=== PATIENT | female | born 1970 | race Caucasian/White ===

== ENCOUNTER 2023-09-07 18:56 | Inpatient (IN) | payer MEDICAID, SELFPAY ==
[2023-09-07] VITALS (13 sets, daily range): BP systolic 98–180; BP diastolic 72–94; PULSE 90–116; RESP 14–19; TEMP 36.4–37.1; O2SAT 93–99; BMI 41.8
--- NOTE | 2023-09-07 | IR_ITS ---
APPROVED REPORT Patient Location: Emergent Appliance Sales Associate: MIGUEL Chen RT (R) PROCEDURES Placement of pericardial pigtail into the pericardial space followed by pericardiocentesis INDICATION Cardiac tamponade Informed consent was obtained prior to the procedure. COMPLICATIONS None TECHNIQUE Patient was brought to the Silver[facility] Buffing Machine Operator and sterilely prepped. 1% lidocaine was used anesthetize the subxiphoid area. A long needle was used to access the pericardial space and a wire was placed into the pericardial space followed by a dilator which dilated the tract. Following this the pigtail catheter was then inserted and 840 cc of blood-tinged fluid was removed. Patient tolerated the procedure well and had normalization of blood pressure following the procedure. The pigtail catheter was sewn into place and then sterilely draped. The bag was placed to gravity feed. IMPRESSION Successful pericardiocentesis with 840 cc of blood-tinged fluid removed alleviating the cardiac tamponade PLAN 1. Supportive care 2. Echocardiogram in the morning 3. [place] drain overnight Electronically signed by : Sebas Barakat MD 09/07/2023 20:35:53
--- NOTE | 2023-09-07 19:00 | PC.NURSE ---
boots and shoes supervisor notified patient is going to cath lab radiological technologist per H.Juan Manuel DAVIS
--- NOTE | 2023-09-07 19:00 | PC.NURSE ---
1899 DR BARR AT BEDSIDE TO PERFORM BS ULTRASOUND [address] BARR ON PHONE WITH DR ROSS, PT TO CATHLAB
--- NOTE | 2023-09-07 19:05 | PC.NURSE ---
PRODUCTION TEAM MEMBER NOTIFIED THAT PT IS GOING TO CATHLAB PER DR ROSS AND DR BARR
--- NOTE | 2023-09-07 19:37 | PC.NURSE ---
roofing laborer called and pt is being trasnported via EMS stretcher and monitor to labeling associate with ems, dye house hand, and ER medic.
--- NOTE | 2023-09-07 19:40 | ED_ITS ---
Discharge Plan Disposition Chief Complaint: Chest Pain Clinical Impressions Clinical Impression: Acute pericardial effusion, Tachycardia Discharge ED Provider: Dagoberto Son General Adult HPI General Chief complaint: Chest Pain Stated complaint: chest pain Time Seen by Provider: 09/07/23 19:00 Mode of Arrival: Ambulatory Source of Information: Patient Limitations: No Limitations Description of Symptoms (Recalled from ER Triage Doc. by RN): pt came from [facility] and is going to fish farm laborer for chest pain /soa. pt has a known pericardial effusion, ER MD at bedside with ultrasound machine. ER MD on the phone with History of Present Illness HPI narrative: Patient is a 53-year-old female who is transferred from [facility] for evaluation of pericardial effusion with suspected tamponade. Patient was reportedly evaluated outside hospital where CT imaging was concerning for tamponade, patient was tachycardic to the 130s and received multiple liters of crystalloid with partial resolution of tachycardia. I was contacted by Dr. Karma al to evaluate the patient to determine if expedited management in the Corrections Caseworker is warranted or if patient will be able to have it done on an urgent basis within the next 24 to 48 hours. Upon arrival patient is complaining of persistent shortness of breath and generally feeling unwell, 4 L nasal cannula is in place, no other acute complaints at this time. Related Data Allergies Allergy/AdvReac Type Severity Reaction Status Date / Time Sulfa (Sulfonamide Allergy Verified 09/07/23 19:20 Antibiotics) [facility] Disclaimer: The information contained in this section may have been updated after the patient was seen, as this information can be updated by other users. Medical History (Updated 09/07/23 @ 19:44 by Dagoberto Son MD) COPD (chronic obstructive pulmonary disease) Surgical History (Updated 09/07/23 @ 19:21 by Reid Mcnamara RN) History of hysterectomy Social History Smoking Status: Current every day smoker alcohol intake: never current occupational status: other Travel in the last 8 weeks: None ROS Obtained: Yes Systems reviewed as appropriate & no additional complaints except as documented Physical Exam General General appearance: alert Respiratory Respiratory exam: Present normal lung sounds bilaterally Cardiovascular Cardiovascular exam: Present regular rate and tachycardia Neurological Exam Neurological exam: Present alert Medical Decision Making Eliseo Inquiry Pt receiving controlled substance: No Vital Signs: 09/07/23 18:56 09/07/23 19:17 Temperature 97.6 F Temperature Source Oral Pulse Rate 116 H Pulse Rate [Right Radial] 116 H Respiratory Rate 15 Blood Pressure [Right Arm] 98/80 L Blood Pressure Mean [Right Arm] 86 02 Sat by Pulse Oximetry 97 Oxygen Delivery Method Room Air Orders (Tests/Meds): ED MEDICATIONS Generic Name Dose Route Start Last Admin Trade Name Freq PRN Reason Stop Dose Admin Fentanyl Citrate 50 mcg 09/07/23 19:26 Fentanyl 100mcg/2ml Vial IV 09/08/23 07:26 Q3MINP PRN Moderate to Severe Pain (4-10) Fentanyl Citrate 25 mcg 09/07/23 19:26 Fentanyl 250mcg/5ml Vial IV 09/08/23 07:26 Q3MINP PRN Moderate to Severe Pain (4-10) Fentanyl Citrate 50 mcg 09/07/23 19:26 Fentanyl 250mcg/5ml Vial IV 09/08/23 07:26 Q3MINP PRN Moderate to Severe Pain (4-10) Fentanyl Citrate 25 mcg 09/07/23 19:26 Fentanyl 100mcg/2ml Vial IV 09/08/23 07:26 Q3MINP PRN Moderate to Severe Pain (4-10) Flumazenil 0.2 mg 09/07/23 19:26 Flumazenil 0.1mg/Ml 5ml Vial IV 09/08/23 07:26 NEEDED PRN Sedation Heparin Sodium (Porcine) 10,000 unit 09/07/23 19:26 Heparin 1,000 Units/Ml 10ml Vial (Corrections Caseworker) IV 09/07/23 23:26 NEEDED PRN [employer] Hydralazine HCl 20 mg 09/07/23 19:26 Hydralazine 20mg/Ml Vial IV 09/07/23 23:26 ONCE PRN sbp>160 Adenosine 180 mg/ Sodium 90 mls @ 653.4 mls/hr 09/07/23 19:26 Chloride IV 09/07/23 23:26 ONCE PRN fractional flow reserve 180 MCG/KG/MIN Adenosine 90 mg/ Sodium 90 mls @ 1,306.8 mls/hr 09/07/23 19:26 Chloride IV 09/07/23 23:26 ONCE PRN fractional flow reserve 180 MCG/KG/MIN Sodium Chloride 1,000 mls @ 25 mls/hr 09/07/23 19:30 Sod Chloride 0.9% 500ml Bag IV 09/08/23 19:26 .Q25H VARSHA Labetalol HCl 20 mg 09/07/23 19:26 Labetalol 20mg/4ml Syringe IV 09/07/23 23:26 ONCE PRN sbp>160 Midazolam HCl 1 mg 09/07/23 19:26 Midazolam Hcl 1mg/1ml 5ml Vial IV 09/08/23 07:26 Q3MINP PRN Sedation Midazolam HCl 1 mg 09/07/23 19:26 Midazolam 2mg/2ml Vial IV 09/08/23 07:26 Q3MINP PRN Sedation Naloxone HCl 0.4 mg 09/07/23 19:26 Naloxone 0.4mg/Ml Vial IV 09/08/23 07:26 Q5MINP PRN Decreased Respirations Nitroglycerin 800 mcg 09/07/23 19:26 Nitroglycerin 800mcg/8ml Syr (Corrections Caseworker) IA 09/07/23 23:26 NEEDED PRN [employer] Protamine Sulfate 50 mg 09/07/23 19:26 Protamine Sulfate 50mg/5ml Vial ([facility]rections Caseworker) IV 09/07/23 23:26 ONCE PRN act>200 Discontinued Medications Generic Name Dose Route Start Last Admin Trade Name Freq PRN Reason Stop Dose Admin Diphenhydramine HCl 50 mg 09/07/23 19:26 Diphenhydramine 50mg/Ml Vial IV 09/07/23 19:27 ONCE ONE Heparin Sodium/Sodium Chloride 3,000 unit 09/07/23 19:26 Heparin 1,000 Units/500ml Ns ([facility]rections Caseworker) IV 09/07/23 19:27 ONCE ONE Lidocaine HCl 20 ml 09/07/23 19:26 Lidocaine 1% 10ml Mdv IJ 09/07/23 19:27 ONCE ONE Lidocaine HCl 20 ml 09/07/23 19:26 Lidocaine 1% 5ml Pf Vial IJ 09/07/23 19:27 ONCE ONE Verapamil HCl 2.5 mg 09/07/23 19:26 Verapamil 2.5mg/Ml 2ml Vial IV 09/07/23 19:27 ONCE ONE ORDERS Category Date Time Status Basic Metabolic Panel Stat Lab 09/07/23 19:26 Ordered Complete Blood Count Auto Diff Stat Lab 09/07/23 19:26 Ordered Medical Decision Narrative: In summary patient is a 53-year-old female past medical history described above who presents emergency department as a transfer patient to outside hospital for evaluation of pericardial effusion with possible tamponade. Patient is hemod ynamically stable upon arrival, tachycardic. Patient's systolic blood pressure is downtrending, she has persistent tachycardia despite 3 L crystalloid resuscitation. [id number] ultrasound at bedside does not show full diastolic collapse of the right ventricle however there is a large pericardial effusion present with swinging of the pericardium. Given this I suspect patient is pending tamponade and has responded to fluid challenge increasing her effective circulating volume therefore decreasing her tachycardia as it is able to oppose the effusion. The case was discussed with Dr. Barakat who agrees that patient will benefit from emergent pericardial drain at this time and patient was transported to the Corrections Caseworker for definitive management. Critical Care Critical Care Time Critical Care Time: Yes Attestation: On 09/07/23, the high probability of a clinically significant, sudden or life threatening deterioration of the following system(s) required my full and direct attention, intervention and personal management. The time I documented below is in addition to time spent performing reported procedures but includes the following listed in this critical care notation. Total Time Total Critical Care Time: 0
[2023-09-07] MEDS: LIDOCAINE 1% 10ML MDV 20 ML IJ (19:42)
[2023-09-07] MEDS: HEPARIN 1,000 UNITS/500ML NS (CATH LAB) 3000 UNIT IV (19:42)
[2023-09-07] MEDS: 0.9 % SODIUM CHLORIDE 500 ML 25 ML IV (19:42)
[2023-09-07] MEDS: MIDAZOLAM HCL 1MG/1ML 5ML VIAL 1 MG IV (20:02)
[2023-09-07] MEDS: FENTANYL 100MCG/2ML VIAL 50 MCG IV (20:03)
--- NOTE | 2023-09-07 20:50 | PC.NURSE ---
Patient arrived to floor via stretcher from blood bank laboratory professional at 2036
--- NOTE | 2023-09-07 20:51 | XR_ITS ---
PROCEDURE INFORMATION: Exam: XR Chest Exam date and time: 09/07/2023 9:11 PM Age: 53 years old Clinical indication: Device placement; Other: Cardiac drain placement TECHNIQUE: Imaging protocol: Radiologic exam of the chest. Views: 1 view. COMPARISON: XA CL PERICARDIOCENTESIS INITIAL 09/07/2023 12:00 AM FINDINGS: Tubes, catheters and devices: Defibrillator pads and telemetry wires project over the patient. No drain catheter is visualized. Lungs: Low lung volumes with consolidative retrocardiac opacity. Pleural spaces: No large pleural effusion. No pneumothorax. Heart/Mediastinum: Cardiomediastinal silouhette is within normal limits. Bones/joints: No evidence of acute osseous abnormality. IMPRESSION: 1. No drain catheter is visualized. 2. Low lung volumes with consolidative retrocardiac opacity.
--- NOTE | 2023-09-07 21:03 | EXP.HP ---
History of Present Illness *Admission Date: 09/07/23 *Reason for visit:: chest pain *History of present illness: This is a 53-year-old morbidly obese female who is transferred from [facility] for evaluation of pericardial effusion with suspected tamponade. Patient PMHx included but not limited to COPD and former smoker. Unknown any previous cardiac history. Patient was reportedly evaluated outside hospital where CT imaging was concerning for tamponade, patient was tachycardic to the 130s and received multiple liters of crystalloid with partial resolution of tachycardia. Upon arrival patient is complaining of persistent shortness of breath and generally feeling unwell, 4 L nasal cannula is in place, no other acute complaints at this time. Patient was emergently taken into [facility] labs. Admitted post procedure for further management. [facility] Disclaimer: The information contained in this section may have been updated after the patient was seen, as this information can be updated by other users. Medical History (Updated 09/08/23 @ 03:09 by Danish Sharma APRN) Anxiety Chronic pain COPD (chronic obstructive pulmonary disease) Depression HTN (hypertension) Neuropathy Surgical History (Updated 09/08/23 @ 03:08 by Danish Sharma APRN) History of hysterectomy Family History (Updated 09/07/23 @ 21:06 by Damian Jean RN) Other No significant family history Social History (Updated 09/07/23 @ 21:07 by Damian Jean RN) Smoking Status: Current every day smoker alcohol intake: never current occupational status: disabled and other Travel in the last 8 weeks: None Review of Systems Review of Systems Review of systems:: unable to obtain Meds Home Medications and Allergies Home Medications Medication Instructions Recorded Confirmed Type buprenorphine 8 mg-naloxone 2 mg 2 tab sublingual DAILY 09/07/23 09/07/23 History sublingual tablet buspirone 15 mg tablet 15 mg PO TID Anxiety 09/07/23 09/07/23 History gabapentin 800 mg tablet 800 mg PO TID Pain 09/07/23 09/07/23 History quetiapine 300 mg tablet 300 mg PO HS Mood 09/07/23 09/07/23 History venlafaxine 75 mg capsule,extended 75 mg PO DAILY Mood 09/07/23 09/07/23 History release 24 hr doxycycline hyclate 100 mg capsule 100 mg PO BID Infection 09/08/23 09/08/23 History ipratropium 20 mcg-albuterol 100 1 puff inhalation Q4HP PRN 09/08/23 09/08/23 History mcg/actuation mist for inhalation Shortness Of Breath (Combivent Respimat) levothyroxine 150 mcg tablet 150 mcg PO DAILY Thyroid 09/08/23 09/08/23 History nicotine 21 mg/24 hr daily 21 mg transdermal DAILY Smoking 09/08/23 09/08/23 History transdermal patch Cessation New Prescriptions to Start Prescriptions: Allergies Allergy/AdvReac Type Severity Reaction Status Date / Time Sulfa (Sulfonamide Allergy Verified 09/07/23 19:20 Antibiotics) Exam Data for Last 24 hours Vital signs and Labs for Last 24 Hours: Temp Pulse Resp BP Pulse Ox O2 Del Method O2 Flow Rate 98.0 F 112 H 14 116/94 H 97 Nasal Cannula 4 09/07/23 19:41 09/07/23 19:41 09/07/23 19:41 09/07/23 19:41 09/07/23 18:56 09/07/23 19:41 09/07/23 19:41 I & O for Last 24 hours: Intake & Output 09/04/23 09/05/23 09/06/23 09/07/23 23:59 23:59 23:59 23:59 Weight 121 kg Constitutional Constitutional: morbidly obese and somnolent *Routine HEENT Exam Head: Present normocephalic and atraumatic Eye: Present EOMI, PERRL and normal accommodation ENT: Present mucous membranes moist *Routine Neck Exam Neck: Present supple, full ROM and trachea midline Routine Chest/Breast/Axilla Exam Comments: percutaneous pericardial drainage to gravity *Routine Respiratory Exam Respiratory: Present wheezes, normal respiratory effort, able to speak in complete sentences and symmetric chest movement; Absent respiratory distress *Routine Cardiovascular Exam Cardiovascular: Present RRR, Normal S1 and Normal S2 *Routine Abdominal Exam Abdominal: Present soft, normoactive bowel sounds and obese; Absent organomegaly *Routine Rectal Exam Rectal:: deferred *Routine Genitalia Exam Genitalia:: deferred *Routine Extremities Exam Extremities: Present full ROM, pulses intact and normal capillary refill; Absent cyanosis, clubbing or edema *Routine Skin Exam Skin: Present dry and warm *Routine Neurological Exam Neurological: Present alert, normal reflexes and moving all extremities Routine Psychiatric Exam Psychiatric: Present unable to assess H&P: Result Imaging and Cardiology EKG: Status: image reviewed by me and Preliminary report Chest x-ray: Status: image reviewed by me, Preliminary report and final report Assessment and Plan *Assessment and plan (1) Pericardial effusion with cardiac tamponade: Status: Acute Category: Medical Code(s): I31.39 - Other pericardial effusion (noninflammatory); I31.4 - Cardiac tamponade (2) Status post pericardiocentesis: Status: Acute Category: Surgical Code(s): Z98.890 - Other specified postprocedural states (3) Tachycardia: Status: Acute Category: Medical Code(s): R00.0 - Tachycardia, unspecified (4) COPD (chronic obstructive pulmonary disease): Status: Acute Qualifiers: COPD type: unspecified COPD Qualified Code(s): J44.9 - Chronic obstructive pulmonary disease, unspecified Category: Medical Code(s): J44.9 - Chronic obstructive pulmonary disease, unspecified (5) HTN (hypertension): Status: Acute Qualifiers: Hypertension type: unspecified Qualified Code(s): I10 - Essential (primary) hypertension Category: Medical Code(s): I10 - Essential (primary) hypertension (6) Morbid obesity with BMI of 40.0-44.9, adult: Status: Acute Category: Medical Code(s): E66.01 - Morbid (severe) obesity due to excess calories; Z68.41 - Body mass index [BMI] 40.0-44.9, adult Plan 53-year-old morbidly obese female who is transferred from [facility] for evaluation of pericardial effusion with suspected tamponade. Upon arrival patient is complaining of persistent shortness of breath and generally feeling unwell, 4 L nasal cannula is in place, no other acute complaints at this time. CT from outside facility was concerning for cardiac tamponade due to large pericardial effusion. Bedside emergency US confirmed the effusion on arrival. Patient was emergently taken for percutaneous pericardial drainage. Patient seen and evaluated post procedure. 850 serosanguineous fluid was drained. drainage on gravity. Findings was discussed with ER provider pre-procedure and and cardiology post- procedure. Agreed with admission. Plan as follow: -Pericardial effusion with cardiac tamponade s/p percutaneous pericardiocentesis: Admit patient for continuous cardiac telemetry. Dispo step down caradiology on board. follow their recommendation. Drainage to gravity assess for amount of fluid collected. monitor for HR, BP and tamponade signs (wide pulse, low voltage) obtaine CBC.CMP lactic acid and PT/INR STAT CXR stat. started on cefepime 2g TID IV post-procedure. monitor for sepsis pain management. - Tachycardia. Resolved. -COPD: Does not seem to be on exacerbation . Currently on 2L monitor O2 sat,. maximize sat, Duoneb q 6h -Hx of HTN. not on any current medication. continue monitoring cardiac diet - Morbidly obese: educated on weight loss. and life style changes. PCP to follow up BMI. patient was heparinized preprocedure. SCD for DVT ppx. will deferred further anticoagulation if need to cardiology team. Protonix for DVT ppx. Case discussed with daugther bedside post- procedure. They agrees with the plan Full code Attending attestation Patient was seen and evaluated at the bedside myself, agree with DREA note.
[2023-09-07 21:05] LABS: Basophils % 0.1 % (0.1-2.0); Eosinophils # 0.2 K/mm3 (0.0-0.4); Eosinophils % 0.9 % (0.1-12.0); Hematocrit 31.7 % (37.0-47.0); Hemoglobin 10.4 g/dL (12.2-16.2); Lymphocytes # 0.6 K/mm3 (0.7-4.5); Lymphocytes % 3.1 % (10-50); Mean Corpuscular HGB Conc 32.7 g/dL (31.8-35.4); Mean Corpuscular Hemoglobin 28.4 pg (27.0-31.2); Mean Corpuscular Volume 87.1 fl (81-99); Mean Platelet Volume 7.8 fl (7.4-10.4); Monocytes # 0.7 K/mm3 (0.1-1.0); Monocytes % 3.9 % (1.7-9.3); Neutrophils % 91.9 % (37.0-80.0); Platelet Count 299 K/mm3 (142-424); Red Blood Count 3.65 M/mm3 (4.20-5.40); Red Cell Distribution Width 13.6 % (11.5-17.5); White Blood Count 18.5 K/mm3 (4.8-10.8)
[2023-09-07 21:08] LABS: MANUAL DIFFERENTIAL MANUAL DIFFERENTIAL (MANUAL DIFF)
--- NOTE | 2023-09-07 21:12 | PC.NURSE ---
pt arrived to the floor @20:46
[2023-09-07 21:17] LABS: Lymphocytes % 3 % (10-50); Monocytes % 6 % (2-9); Neutrophils % 91 % (42-76); Platelet Estimate Normal; RBC Morphology Normal; Total Cells Counted 100
[2023-09-07 21:26] LABS: Anion Gap 12.6 mEq/L (5-15); Blood Urea Nitrogen 12 mg/dl (7-17); Calcium 7.6 mg/dl (8.4-10.2); Carbon Dioxide 25 mmol/L (22.0-30.0); Chloride 101 mmol/L (98-107); Creatinine Clearance Estimated 62 mL/min (50-200); Estimated Glomerular Filt Rate 58 ml/min (>60); GFR (African American) 70 ML/MIN (>60); Glucose 150 mg/dl (74-100); Potassium 4.6 mmoL/L (3.5-5.1); Sodium 134 mmol/L (136-145)
[2023-09-07 21:32] LABS: INR 1.66 (0.9-1.1); Prothrombin Time 17.3 seconds (10.1-12.5)
[2023-09-07] MEDS: CEFEPIME HCL 2 GM in 0.9 % SODIUM CHLORIDE 100 ML IV (21:58)
[2023-09-07] MEDS: PANTOPRAZOLE 40MG TABLET 40 MG PO (22:12)
--- NOTE | 2023-09-07 22:36 | PC.NURSE ---
Cath team notified at 1902 Shira call back: 1904 Chaitanya call back: 1903 Hannah call back: 1904
[2023-09-07] MEDS: IPRATROPIUM/ALBUTEROL 3 ML NEB IH (23:39)
[2023-09-08] VITALS (12 sets, daily range): BP systolic 112–130; BP diastolic 45–79; PULSE 84–108; RESP 17–21; TEMP 36.6–37.1; O2SAT 90–98; BMI 43.9
[2023-09-08] MEDS: CEFEPIME HCL 2 GM in 0.9 % SODIUM CHLORIDE 100 ML IV ×3 (04:18→19:41)
--- NOTE | 2023-09-08 04:51 | PC.NURSE ---
Patient placed on room air, sats 90-92%
--- NOTE | 2023-09-08 04:51 | PC.NURSE ---
Patient had uneventful night. Pericardial drain in place, no drainage emptied by RN overnight. A&O x 4. SR/ST on monitor. Weaned to RA, sats around 90% while sleeping (pt hx of COPD). No complaints of pain. Delaney in place, good UOP. No BM. VSS.
[2023-09-08] MEDS: IPRATROPIUM/ALBUTEROL 3 ML NEB IH ×3 (06:30→17:52)
--- NOTE | 2023-09-08 07:26 | HMH.PHAINT1 ---
Pharmacy Intervention Comments: MEDICATION RECONCILIATION COMPLETED ON PATIENT USING EXTERNAL FILL HISTORY FROM PHARMACY AND ASHLEY REPORT. -SRINIVASAN RAYGOAZ, AYALAD
[2023-09-08 07:39] LABS: Alanine Aminotransferase 39 U/L (12-78); Albumin Level 2.8 g/dl (3.5-5.0); Albumin/Globulin Ratio 0.9 (1.1-1.8); Alkaline Phosphatase 105 U/L (38-126); Anion Gap 7.1 mEq/L (5-15); Aspartate Amino Transferase 40 U/L (14-36); Bilirubin,Total 0.7 mg/dl (0.2-1.3); Blood Urea Nitrogen 11 mg/dl (7-17); Calcium 7.8 mg/dl (8.4-10.2); Carbon Dioxide 29 mmol/L (22.0-30.0); Chloride 104 mmol/L (98-107); Chol/HDL Ratio 2.8 (1-3.5); Cholesterol 62 mg/dl (140-200); Creatinine Clearance Estimated 85 mL/min (50-200); Estimated Glomerular Filt Rate 87 ml/min (>60); GFR (African American) 105 ML/MIN (>60); Globulin 3.1 g/dL (1.3-3.2); Glucose 95 mg/dl (74-100); HDL Cholesterol 22 mg/dl (40-60); Potassium 4.1 mmoL/L (3.5-5.1); Sodium 136 mmol/L (136-145); Total Protein,Serum 5.9 g/dl (6.3-8.2); Triglycerides 37 mg/dl (30-150); VLDL Cholesterol 7 mg/dL (0-40)
[2023-09-08 07:42] LABS: Basophils % 0.2 % (0.1-2.0); Eosinophils % 0.3 % (0.1-12.0); Hematocrit 29.2 % (37.0-47.0); Hemoglobin 9.9 g/dL (12.2-16.2); Lymphocytes # 0.9 K/mm3 (0.7-4.5); Lymphocytes % 6.8 % (10-50); Mean Corpuscular Hemoglobin 30.1 pg (27.0-31.2); Mean Corpuscular Volume 88.5 fl (81-99); Mean Platelet Volume 7.8 fl (7.4-10.4); Monocytes # 0.8 K/mm3 (0.1-1.0); Monocytes % 5.7 % (1.7-9.3); Neutrophils # 11.6 K/mm3 (1.8-7.8); Platelet Count 243 K/mm3 (142-424); Red Cell Distribution Width 13.4 % (11.5-17.5); White Blood Count 13.3 K/mm3 (4.8-10.8)
[2023-09-08 07:47] LABS: MANUAL DIFFERENTIAL MANUAL DIFFERENTIAL (MANUAL DIFF)
[2023-09-08 07:50] LABS: Direct LDL Cholesterol 34.97 mg/dL (100-129)
[2023-09-08 08:40] LABS: Lymphocytes % 7 % (10-50); Monocytes % 3 % (2-9); Neutrophils % 90 % (42-76); Platelet Estimate Normal; RBC Morphology Normal; Total Cells Counted 100
--- NOTE | 2023-09-08 09:09 | PC.NURSE ---
per order from [facility] hospitalist, pt was to be admitted as a stepdown pt, admissions states that pt was admitted to medicine, not stepdown, Dr. Bowser confirmed that pt does not need to be stepdown
[2023-09-08] MEDS: BUPRENORPHINE/NALOXONE 8MG/2MG ODT 2 EACH SL (10:36)
--- NOTE | 2023-09-08 10:42 | EXP.CARD.CON ---
History of Present Illness History of Present Illness Consult date: 09/08/23 Requesting physician: Genesis Bowser Consult reason: shortness of breath Chief complaint: Pericardial effusion History of present illness: Hospitalist note: 53-year-old morbidly obese female who is transferred from [facility] for evaluation of pericardial effusion with suspected tamponade. Patient PMHx included but not limited to COPD and former smoker. Patient was reportedly evaluated outside hospital where CT imaging was concerning for tamponade, patient was tachycardic to the 130s and received multiple liters of crystalloid with partial resolution of tachycardia. Upon arrival patient is complaining of persistent shortness of breath and generally feeling unwell, 4 L nasal cannula is in place, no other acute complaints at this time. Patient was emergently taken into [facility] labs. Admitted post procedure for further management. Cardiology note: 53-year-old white female with past medical history of morbid obesity, COPD and hypertension presented [facility] ER yesterday as a transfer from [facility] for pericardial effusion with tamponade. Patient was taken immediately to [facility] for drainage of pericardial effusion and a pericardial drain was left in place. Patient is resting comfortably this morning denies chest pain or shortness of breath. Patient reports that last week she was admitted to [facility] with a diagnosis of pneumonia, COPD exacerbation and pleurisy. Patient reports she never really felt better and was discharged home. Patient reports progressive and worsening shortness of breath and chest pain prompting her to return to the emergency department yesterday. Patient also endorses that recently she was at [facility] and underwent a heart catheterization and was told everything is fine. Of note patient is a poor historian. 800 mL was emptied from drain this morning, specimen was sent to lab for cytology. Morning labs as follow: Hemoglobin 13.3, hemoglobin 9.9, sodium 136, potassium 4.1, creatinine 0.7. Cardiogram is pending. Vital's remain stable. CTA of chest was performed at [facility] yesterday and was negative for a PE or dissection but did show a significant interval increase in size of pericardial effusion and small bilateral pleural effusions. [facility] Disclaimer: The information contained in this section may have been updated after the patient was seen, as this information can be updated by other users. Medical History (Updated 09/08/23 @ 03:09 by Danish Sharma APRN) Anxiety Chronic pain COPD (chronic obstructive pulmonary disease) Depression HTN (hypertension) Neuropathy Surgical History (Updated 09/08/23 @ 03:08 by Danish Sharma APRN) History of hysterectomy Family History (Updated 09/07/23 @ 21:06 by Damian Jean, RN) Other No significant family history Social History (Updated 09/07/23 @ 21:07 by Damian Jean, RN) Smoking Status: Current every day smoker alcohol intake: never current occupational status: disabled and other Travel in the last 8 weeks: None Review of Systems Review of Systems Review of systems:: pertinent systems reviewed and negative unless documented below Constitutional Constitutional: Reports system reviewed and no additional complaints, except as documented *Cardiovascular Cardiovascular: Reports system reviewed and no additional complaints, except as documented *Respiratory Respiratory: Reports system reviewed and no additional complaints, except as documented *Gastrointestinal Gastrointestinal: Reports system reviewed and no additional complaints, except as documented *Neurologic Neurologic: Reports system reviewed and no additional complaints, except as documented and Denies confusion Psychiatric Psychiatric: Reports system reviewed and no additional complaints, except as documented and Denies confusion Exam Data for Last 24 hours Vital signs and Labs for Last 24 Hours: Temp Pulse Resp BP Pulse Ox O2 Del Method O2 Flow Rate 97.9 F 99 H 20 117/71 95 Room Air 93 09/08/23 08:00 09/08/23 08:00 09/08/23 08:00 09/08/23 08:00 09/08/23 08:00 09/08/23 09:00 09/08/23 09:00 Laboratory Results - last 24 hr 09/07/23 21:00: WBC 18.5 H, RBC 3.65 L, Hgb 10.4 L, Hct 31.7 L, MCV 87.1, MCH 28.4, MCHC 32.7, RDW 13.6, Plt Count 299, MPV 7.8, Neut % (Auto) 91.9 H, Lymph % (Auto) 3.1 L, [place] % (Auto) 3.9, Eos % (Auto) 0.9, Baso % (Auto) 0.1, Neut # (Auto) 17.0 H, Lymph # (Auto) 0.6 L, [place] # (Auto) 0.7, Eos # (Auto) 0.2, Baso # (Auto) 0.0, Total Counted 100, Neutrophils % (Manual) 91 H, Lymphocytes % (Manual) 3 L, Monocytes % (Manual) 6, Platelet Estimate Normal, RBC Morphology Normal, PT 17.3 H, INR 1.66 H, Sodium 134 L, Potassium 4.6, Chloride 101, Carbon Dioxide 25, Anion Gap 12.6, BUN 12, Creatinine 1.00, Estimated Creat Clear 62, Estimated GFR 58 L, Est GFR ( Amer) 70, Glucose 150 H, Lactate 1.0, Calcium 7.6 L 09/08/23 06:40: WBC 13.3 H D, RBC 3.30 L, Hgb 9.9 L, Hct 29.2 L, MCV 88.5, MCH 30.1, MCHC 34.0, RDW 13.4, Plt Count 243, MPV 7.8, Neut % (Auto) 87.0 H, Lymph % (Auto) 6.8 L, [place] % (Auto) 5.7, Eos % (Auto) 0.3, Baso % (Auto) 0.2, Neut # (Auto) 11.6 H, Lymph # (Auto) 0.9, [place] # (Auto) 0.8, Eos # (Auto) 0.0, Baso # (Auto) 0.0, Total Counted 100, Neutrophils % (Manual) 90 H, Lymphocytes % (Manual) 7 L, Monocytes % (Manual) 3, Platelet Estimate Normal, RBC Morphology Normal, Sodium 136, Potassium 4.1, Chloride 104, Carbon Dioxide 29, Anion Gap 7.1, BUN 11, Creatinine 0.70 D, Estimated Creat Clear 85, Estimated GFR 87, Est GFR ( Amer) 105 D, Glucose 95 D, Calcium 7.8 L, Magnesium 2.0, Total Bilirubin 0.7, AST 40 H, ALT 39, Alkaline Phosphatase 105, Total Protein 5.9 L, Albumin 2.8 L, Globulin 3.1, Albumin/Globulin Ratio 0.9 L, Triglycerides 37, Cholesterol 62 L, LDL Cholesterol Direct 34.97 L, VLDL Cholesterol 7, HDL Cholesterol 22 L, Cholesterol/HDL Ratio 2.8 I & O for Last 24 hours: Intake & Output 09/05/23 09/06/23 09/07/23 09/08/23 23:59 23:59 23:59 23:59 Intake Total 100 / 100 Output Total 400 / 400 1325 / 1325 Balance -300 / -300 -1325 / -1325 Weight 266 lb 12.149 oz 280 lb 3.32 oz Constitutional Constitutional: no acute distress *Routine Respiratory Exam Respiratory: Present CTA bilaterally and symmetric chest movement *Routine Cardiovascular Exam Cardiovascular: Present RRR, Normal S1 and Normal S2 Comments: Pericardial drain in place *Routine Abdominal Exam Abdominal: Present soft and normoactive bowel sounds; Absent tenderness *Routine Extremities Exam Extremities: Present full ROM and normal capillary refill; Absent edema *Routine Skin Exam Skin: Present intact, dry and warm Detailed Neck Exam: Thyroids Thyroid: Absent bruit Meds Home Medications and Allergies Home Medications Medication Instructions Recorded Confirmed Type buprenorphine 8 mg-naloxone 2 mg 2 tab sublingual DAILY 09/07/23 09/07/23 History sublingual tablet buspirone 15 mg tablet 15 mg PO TID Anxiety 09/07/23 09/07/23 History gabapentin 800 mg tablet 800 mg PO TID Pain 09/07/23 09/07/23 History quetiapine 300 mg tablet 300 mg PO HS Mood 09/07/23 09/07/23 History venlafaxine 75 mg capsule,extended 75 mg PO DAILY Mood 09/07/23 09/07/23 History release 24 hr doxycycline hyclate 100 mg capsule 100 mg PO BID Infection 09/08/23 09/08/23 History ipratropium 20 mcg-albuterol 100 1 puff inhalation Q4HP PRN 09/08/23 09/08/23 History mcg/actuation mist for inhalation Shortness Of Breath (Combivent Respimat) levothyroxine 150 mcg tablet 150 mcg PO DAILY Thyroid 09/08/23 09/08/23 History nicotine 21 mg/24 hr daily 21 mg transdermal DAILY Smoking 09/08/23 09/08/23 History transdermal patch Cessation New Prescriptions to Start Prescriptions: Allergies Allergy/AdvReac Type Severity Reaction Status Date / Time Sulfa (Sulfonamide Allergy Verified 09/07/23 19:20 Antibiotics) Assessment and Plan *Assessment and plan (1) Pericardial effusion with cardiac tamponade: Status: Acute Category: Medical Code(s): I31.39 - Other pericardial effusion (noninflammatory); I31.4 - Cardiac tamponade (2) Acute pericardial effusion: Status: Acute Category: Medical Code(s): I30.9 - Acute pericarditis, unspecified Plan Pericardial effusion with cardiac tamponade -Patient is status post pericardiocentesis yesterday with pericardial drain in place. -800 mL of blood emptied from drain this morning, specimen sent to lab for cytology -Preliminary echocardiogram from this morning shows normal biventricular function with a small circumferential pericardial effusion with no evidence of tamponade. -CTA of chest was performed at [facility] yesterday and was negative for PE or dissection. -Will obtain medical records from [facility] in [place] where patient was recently hospitalized and reportedly had a heart cath. -AYLIN and TSH pending -Gram stain and culture pending -Will repeat echocardiogram Monday morning for recheck of pericardial effusion. CV summary 09/08/2023: Patient is currently stable with pericardial drain in place. 800 mL was emptied this morning and specimen was sent for cytology. Will leave drain in place until output decreases.
[2023-09-08] MEDS: VENLAFAXINE XR 75MG CAPSULE 75 MG PO (11:01)
[2023-09-08] MEDS: LEVOTHYROXINE 150MCG (0.15MG)TAB 150 MCG PO (11:01)
[2023-09-08] MEDS: NICOTINE 21MG/24HR PATCH 21 MG TD (11:02)
[2023-09-08 12:01] LABS: Free T4 (Free Thyroxine) 1.38 ng/dl (0.78-2.19)
[2023-09-08 12:15] LABS: Thyroid Stimulating Hormone 0.79 uIU/mL (0.465-4.68)
[2023-09-08] MEDS: BUSPIRONE HCL 10 MG TABLET 15 MG PO ×2 (12:31→20:13)
[2023-09-08] MEDS: GABAPENTIN 800MG TABLET 800 MG PO ×2 (12:32→20:13)
--- NOTE | 2023-09-08 14:29 | P.PN_ITS ---
Subjective *Date: 09/08/23 *Time: 14:29 Interval history: patient was seen and evaluated at the bedside. No reported acute events overnight, denies chest pain, shortness of breath, nausea, vomiting, abdominal pain. Had pericardial drain, draining good amount of fluid Exam Data for Last 24 hours Vital signs and Labs for Last 24 Hours: Temp Pulse Resp BP Pulse Ox O2 Del Method O2 Flow Rate 98.4 F 108 H 21 130/65 90 L Room Air 93 09/08/23 12:00 09/08/23 12:00 09/08/23 12:00 09/08/23 12:00 09/08/23 12:00 09/08/23 13:00 09/08/23 09:00 Laboratory Results - last 24 hr 09/07/23 21:00: WBC 18.5 H, RBC 3.65 L, Hgb 10.4 L, Hct 31.7 L, MCV 87.1, MCH 28.4, MCHC 32.7, RDW 13.6, Plt Count 299, MPV 7.8, Neut % (Auto) 91.9 H, Lymph % (Auto) 3.1 L, [place] % (Auto) 3.9, Eos % (Auto) 0.9, Baso % (Auto) 0.1, Neut # (Auto) 17.0 H, Lymph # (Auto) 0.6 L, [place] # (Auto) 0.7, Eos # (Auto) 0.2, Baso # (Auto) 0.0, Total Counted 100, Neutrophils % (Manual) 91 H, Lymphocytes % (Manual) 3 L, Monocytes % (Manual) 6, Platelet Estimate Normal, RBC Morphology Normal, PT 17.3 H, INR 1.66 H, Sodium 134 L, Potassium 4.6, Chloride 101, Carbon Dioxide 25, Anion Gap 12.6, BUN 12, Creatinine 1.00, Estimated Creat Clear 62, Estimated GFR 58 L, Est GFR ( Amer) 70, Glucose 150 H, Lactate 1.0, Calcium 7.6 L 09/08/23 06:40: WBC 13.3 H D, RBC 3.30 L, Hgb 9.9 L, Hct 29.2 L, MCV 88.5, MCH 30.1, MCHC 34.0, RDW 13.4, Plt Count 243, MPV 7.8, Neut % (Auto) 87.0 H, Lymph % (Auto) 6.8 L, [place] % (Auto) 5.7, Eos % (Auto) 0.3, Baso % (Auto) 0.2, Neut # (Auto) 11.6 H, Lymph # (Auto) 0.9, [place] # (Auto) 0.8, Eos # (Auto) 0.0, Baso # (Auto) 0.0, Total Counted 100, Neutrophils % (Manual) 90 H, Lymphocytes % (Manual) 7 L, Monocytes % (Manual) 3, Platelet Estimate Normal, RBC Morphology Normal, Sodium 136, Potassium 4.1, Chloride 104, Carbon Dioxide 29, Anion Gap 7.1, BUN 11, Creatinine 0.70 D, Estimated Creat Clear 85, Estimated GFR 87, Est GFR ( Amer) 105 D, Glucose 95 D, Calcium 7.8 L, Magnesium 2.0, Total Bilirubin 0.7, AST 40 H, ALT 39, Alkaline Phosphatase 105, Total Protein 5.9 L, Albumin 2.8 L, Globulin 3.1, Albumin/Globulin Ratio 0.9 L, Triglycerides 37, Cholesterol 62 L, LDL Cholesterol Direct 34.97 L, VLDL Cholesterol 7, HDL Cholesterol 22 L, Cholesterol/HDL Ratio 2.8, TSH 0.79, Free T4 1.38 I & O for Last 24 hours: Intake & Output 09/05/23 09/06/23 09/07/23 09/08/23 23:59 23:59 23:59 23:59 Intake Total 100 / 100 360 / 360 Output Total 400 / 400 1325 / 1325 Balance -300 / -300 -965 / -965 Weight 121 kg 127 kg Constitutional Constitutional: no acute distress *Routine HEENT Exam Head: Present normocephalic Eye: Present EOMI and PERRL ENT: Present mucous membranes moist *Routine Neck Exam Neck: Present supple; Absent lymphadenopathy *Routine Respiratory Exam Respiratory: Present CTA bilaterally *Routine Cardiovascular Exam Cardiovascular: Present RRR *Routine Abdominal Exam Abdominal: Present soft and normoactive bowel sounds; Absent tenderness *Routine Extremities Exam Extremities: Absent cyanosis, clubbing or edema *Routine Skin Exam Skin: Present warm; Absent rash *Routine Neurological Exam Neurological: Present alert and oriented X3 Assessment and Plan *Assessment and plan (1) Pericardial effusion with cardiac tamponade: Status: Acute Category: Medical Code(s): I31.39 - Other pericardial effusion (noninflammatory); I31.4 - Cardiac tamponade (2) Status post pericardiocentesis: Status: Acute Category: Surgical Code(s): Z98.890 - Other specified postprocedural states (3) Tachycardia: Status: Acute Category: Medical Code(s): R00.0 - Tachycardia, unspecified (4) COPD (chronic obstructive pulmonary disease): Status: Acute Qualifiers: COPD type: unspecified COPD Qualified Code(s): J44.9 - Chronic obstructive pulmonary disease, unspecified Category: Medical Code(s): J44.9 - Chronic obstructive pulmonary disease, unspecified (5) HTN (hypertension): Status: Acute Qualifiers: Hypertension type: unspecified Qualified Code(s): I10 - Essential (primary) hypertension Category: Medical Code(s): I10 - Essential (primary) hypertension (6) Morbid obesity with BMI of 40.0-44.9, adult: Status: Acute Category: Medical Code(s): E66.01 - Morbid (severe) obesity due to excess calories; Z68.41 - Body mass index [BMI] 40.0-44.9, adult Plan 53-year-old morbidly obese female who is transferred from [facility] for evaluation of pericardial effusion with suspected tamponade. Upon arrival patient is complaining of persistent shortness of breath and generally feeling unwell, 4 L nasal cannula is in place, no other acute complaints at this time. CT from outside facility was concerning for cardiac tamponade due to large pericardial effusion. Bedside emergency US confirmed the effusion on arrival. Patient was emergently taken for percutaneous pericardial drainage. Patient seen and evaluated post procedure. 850 serosanguineous fluid was drained. drainage on gravity. Findings was discussed with ER provider pre- procedure and and cardiology post- procedure. Agreed with admission. Plan as follow: -Pericardial effusion with cardiac tamponade s/p percutaneous pericardiocentesis: Admit patient for continuous cardiac telemetry. Dispo step down cardiology on board. follow their recommendation. Drainage to gravity assess for amount of fluid collected. monitor for HR, BP and tamponade signs (wide pulse, low voltage) obtaine CBC.CMP lactic acid and PT/INR STAT CXR stat. on cefepime 2g TID IV post-procedure. monitor for sepsis pain management. - Tachycardia. Resolved. -COPD: Does not seem to be on exacerbation . Currently on 2L monitor O2 sat,. maximize sat, Duoneb q 6h -Hx of HTN. not on any current medication. continue monitoring cardiac diet - Morbidly obese: educated on weight loss. and life style changes. PCP to follow up BMI. SCD for DVT ppx. will deferred further anticoagulation if need to cardiology team. Protonix for DVT ppx. Case discussed with daugther bedside post- procedure. They agrees with the plan Full code DC 1-2 days pending clinical improvement and when Ok with cardiology, reviewed labs, imaging and discussed with cardiology
--- NOTE | 2023-09-08 15:17 | PC.NURSE ---
patient remains alert and oriented x4, she has been sitting up in bed for most of the day. She's been on room air since this morning with no issues.
[2023-09-08] MEDS: ACETAMINOPHEN 325MG TAB 650 MG PO (17:45)
--- NOTE | 2023-09-08 17:58 | PC.NURSE ---
patient substernal pain was relieved by tylenol.
[2023-09-08] MEDS: QUETIAPINE 100MG TABLET 300 MG PO (20:13)
[2023-09-08] MEDS: PANTOPRAZOLE 40MG TABLET 40 MG PO (20:14)
--- NOTE | 2023-09-08 21:40 | CA_ITS ---
APPROVED REPORT EXAM: Comprehensive 2D, Doppler, and color-flow Echocardiogram Supervisor Polishing: Liliane Martins CRT Ht: 5 ft 6 in Wt: 280lbs BSA: 2.31 BP: 98/80 mmHg Indications: Pericardial Effusion, post pericardiocentesis 09/07/23 8pm, drain left in place overnight 2D Dimensions LA Volume 67.00 mL LA Volume Index 28.40 mL/m2 (M/F) 16-34 M-Mode Dimensions RVDd 3.09 cm (0.9-2.6) LA Diam 4.30 cm (1.9-4.0) LVDd 4.61 cm (3.5-5.7) LVDs 2.55 cm (3.5-5.7) IVSd 1.34 cm (0.6-1.1) PWd 1.07 cm (0.6-1.1) EF (Teich) 76.10% FS 44.70% EDV (Teich) 97.80 mL TAPSE 2.22 (<1.7) ESV (Teich) 23.40 mL LV Diastology E Decel Time 53 (160-240 msec) E/A Ratio 1.04 MED A' 10.00 cm/s LAT A' 9.20 cm/s Aortic Valve AO Peak GR. 7.60 mmHg Mitral Valve MV A Velocity 60.0 (40-130 cm/s) E/A Ratio 1.04 Pulmonary Valve PV Peak Velocity 130.0 (50-150 cm/s) Tricuspid Valve TR P. Velocity 155.00 cm/s RAP Estimate 10.00 mmHg RVSP 19.60 mmHg Left Ventricle The left ventricle is normal size. The left ventricular systolic function is normal. The left ventricular ejection fraction is within the normal range. There is normal left ventricular wall thickness. There is normal LV segmental wall motion. The left ventricular diastolic function is normal. LVEF is 55%. Right Ventricle The right ventricle is mildly dilated. The right ventricular systolic function is normal. Atria The left atrium is mildly dilated. The right atrium is mildly dilated. Color Doppler of the interatrial septum is not performed. Aortic Valve The aortic valve opens well. There is no aortic valvular stenosis. No aortic regurgitation is present. Mitral Valve The mitral valve is normal in structure. No evidence of mitral valve stenosis. Trace mitral regurgitation. There is no significant transmitral respirophasic variation. Tricuspid Valve The tricuspid valve leaflets are thin and pliable. Trace tricuspid regurgitation. There is insufficient TR jet to estimate RVSP. There is no significant respirophasic variation across the tricuspid valve. Pulmonic Valve The pulmonary valve is normal in structure. Trace pulmonic regurgitation. Great Vessels The aortic root is normal in size. The ascending aorta is not well-visualized. The IVC is plethoric. Pericardium There is a small sized, circumferential pericardial effusion present. The largest pocket measures 0.9 cm in diastole. There is slight invagination of the right ventricle during diastole, but without collapse. Other Information Study Quality: Fair Conclusion The patient is s/p pericardiocentesis with pericardial drain in place. Normal biventricular systolic function. Mild RV dilation. Mild biatrial dilation. No significant valvular stenosis or regurgitation. Small, circumferential pericardial effusion. Largest pocket measures 0.9 cm in diastole. There is slight invagination of the RV during diastole, but without chamber collapse. The IVC is also plethoric. There is no respirophasic variation across tricuspid or mitral valve. Overall, the findings are not conclusive for tamponade, but further serial limited TTEs and continued pericardial drainage is recommended. Electronically signed by : Roxane Yanez MD 09/08/2023 19:54:34
--- NOTE | 2023-09-08 23:19 | PC.NURSE ---
Pt sleeping in room, RN noticed O2 sats drop to around 85-86% consistently while sleeping on room air. Placed on 2L NC, current O2 is 95%.
[2023-09-09] VITALS (17 sets, daily range): BP systolic 101–135; BP diastolic 59–93; PULSE 80–112; RESP 16–22; TEMP 36.3–36.9; O2SAT 91–100; BMI 43.4
[2023-09-09] MEDS: IPRATROPIUM/ALBUTEROL 3 ML NEB IH ×5 (00:21→23:56)
[2023-09-09] MEDS: CEFEPIME HCL 2 GM in 0.9 % SODIUM CHLORIDE 100 ML IV ×3 (03:02→20:30)
--- NOTE | 2023-09-09 04:39 | PC.NURSE ---
Patient remains A&O x 4. On room air when awake but needed 1L NC while asleep. SR on monitor. VSS. Delaney in place. Pericardial drain in place w/ minimal output. No complaints this shift. Slept all night.
[2023-09-09] MEDS: LEVOTHYROXINE 150MCG (0.15MG)TAB 150 MCG PO (06:03)
--- NOTE | 2023-09-09 08:06 | CT_ITS ---
PROCEDURE INFORMATION: Exam: CT Chest Without Contrast; Diagnostic Exam date and time: 09/09/2023 8:10 AM Age: 53 years old Clinical indication: Patient HX: Pericardial effusion w/ drain. Copd; Additional info: Pericarial effusion w/ drain TECHNIQUE: Imaging protocol: Diagnostic computed tomography of the chest without contrast. Radiation optimization: All CT scans at this facility use at least one of these dose optimization techniques: automated exposure control; mA and/or kV adjustment per patient size (includes targeted exams where dose is matched to clinical indication); or iterative reconstruction. COMPARISON: CT CHEST PE PROTOCOL 09/07/2023 2:31 PM FINDINGS: Tubes, catheters and devices: Drainage tube terminates in the pericardial effusion. For example series 05/21 image [id number].. Lungs: Consolidation in the lower lobes . Opacities in the left upper lobe and lingula. Findings. may represent atelectasis or pneumonia. Pleural spaces: Moderate left pleural effusion. Smaller right pleural effusion. Heart: Pericardial effusion measures up to 19 mm.. Coronary arteries: Coronary artery calcifications may indicate coronary artery disease. Lymph nodes: Unremarkable. No enlarged lymph nodes. Vasculature: Unremarkable. No aortic aneurysm. Gallbladder and bile ducts: Cholecystectomy Bones/joints: Unremarkable. No acute fracture. Soft tissues: Unremarkable. IMPRESSION: 1. Pericardial effusion measures up to 19 mm.. 2. Moderate left pleural effusion. Smaller right pleural effusion. 3. May represent atelectasis or pneumonia. 4. Drainage tube terminates in the pericardial effusion. For example series 05/21 image [id number]..
[2023-09-09] MEDS: BUSPIRONE HCL 10 MG TABLET 15 MG PO ×3 (08:40→21:37)
[2023-09-09] MEDS: VENLAFAXINE XR 75MG CAPSULE 75 MG PO (08:40)
[2023-09-09] MEDS: BUPRENORPHINE/NALOXONE 8MG/2MG ODT 2 EACH SL (08:40)
[2023-09-09] MEDS: NICOTINE 21MG/24HR PATCH 21 MG TD (08:40)
[2023-09-09] MEDS: GABAPENTIN 800MG TABLET 800 MG PO ×3 (08:40→21:37)
--- NOTE | 2023-09-09 09:16 | CT_ITS ---
PROCEDURE INFORMATION: Exam: CT Neck Without Contrast Exam date and time: 09/09/2023 9:28 AM Age: 53 years old Clinical indication: Abscess, cutaneous; Additional info: Neck abscess R neck? TECHNIQUE: Imaging protocol: Computed tomography of the neck without contrast. Radiation optimization: All CT scans at this facility use at least one of these dose optimization techniques: automated exposure control; mA and/or kV adjustment per patient size (includes targeted exams where dose is matched to clinical indication); or iterative reconstruction. COMPARISON: CT CHEST WO CON 09/09/2023 8:10 AM FINDINGS: Pharynx: Unremarkable. No significant tonsillar enlargement. Larynx: Unremarkable. Epiglottis is normal. Prevertebral and retropharyngeal spaces: Unremarkable. Salivary glands: Normal. Glands are normal in size. Thyroid: Normal. No enlarged or calcified nodules. Lymph nodes: Unremarkable. No lymphadenopathy. Trachea: Visualized trachea is unremarkable. Lungs: Unremarkable as visualized. Bones/joints: Unremarkable. No acute fracture. Soft tissues: Unremarkable. No significant soft tissue swelling. Other findings: Limited evaluation for abscess without intravenous contrast. No drainable collection identified. IMPRESSION: Limited evaluation for abscess without intravenous contrast. No drainable collection identified.
[2023-09-09 10:47] LABS: Basophils % 0.3 % (0.1-2.0); Eosinophils # 0.1 K/mm3 (0.0-0.4); Eosinophils % 1.4 % (0.1-12.0); Hematocrit 31.1 % (37.0-47.0); Hemoglobin 10.1 g/dL (12.2-16.2); Lymphocytes # 0.7 K/mm3 (0.7-4.5); Lymphocytes % 9.3 % (10-50); Mean Corpuscular HGB Conc 32.5 g/dL (31.8-35.4); Mean Corpuscular Hemoglobin 28.6 pg (27.0-31.2); Mean Corpuscular Volume 88.2 fl (81-99); Mean Platelet Volume 7.6 fl (7.4-10.4); Monocytes # 0.3 K/mm3 (0.1-1.0); Monocytes % 4.3 % (1.7-9.3); Neutrophils # 6.3 K/mm3 (1.8-7.8); Neutrophils % 84.8 % (37.0-80.0); Platelet Count 277 K/mm3 (142-424); Red Blood Count 3.53 M/mm3 (4.20-5.40); Red Cell Distribution Width 13.7 % (11.5-17.5); White Blood Count 7.4 K/mm3 (4.8-10.8)
[2023-09-09 10:57] LABS: Anion Gap 8.2 mEq/L (5-15); Blood Urea Nitrogen 12 mg/dl (7-17); Calcium 8.2 mg/dl (8.4-10.2); Carbon Dioxide 30 mmol/L (22.0-30.0); Chloride 104 mmol/L (98-107); Creatinine Clearance Estimated 74 mL/min (50-200); Estimated Glomerular Filt Rate 74 ml/min (>60); GFR (African American) 90 ML/MIN (>60); Glucose 122 mg/dl (74-100); Potassium 4.2 mmoL/L (3.5-5.1); Sodium 138 mmol/L (136-145)
--- NOTE | 2023-09-09 11:06 | PC.NURSE ---
08 dr Barakat called to check on pt status. informed md that pt has had no output from drain since 09/08. ordered for pt to have ct of chest to check for loculation of fluid. [phone] attempted to call with results of scan [address] scan called to Dr Barakat at this time. states that pt has 19mm pericardial effusion remaining. per potential for pt to have to return to research laboratory specialist for repositioning of pericardial drain.
--- NOTE | 2023-09-09 15:51 | EXP.PN ---
Subjective *Date: 09/09/23 *Time: 15:51 Interval history: patient was seen and evaluated at the bedside. No reported acute events overnight, denies chest pain, shortness of breath, nausea, vomiting, abdominal pain. Has pericardial drain, not draining any much amount of fluid Exam Data for Last 24 hours Vital signs and Labs for Last 24 Hours: Temp Pulse Resp BP Pulse Ox O2 Del Method O2 Flow Rate 98.4 F 93 H 17 109/73 L 95 Room Air 1 09/09/23 15:17 09/09/23 15:17 09/09/23 15:17 09/09/23 15:17 09/09/23 15:17 09/09/23 15:17 09/09/23 08:00 Laboratory Results - last 24 hr 09/09/23 10:40: WBC 7.4 D, RBC 3.53 L, Hgb 10.1 L, Hct 31.1 L, MCV 88.2, MCH 28.6, MCHC 32.5, RDW 13.7, Plt Count 277, MPV 7.6, Neut % (Auto) 84.8 H, Lymph % (Auto) 9.3 L, [place] % (Auto) 4.3, Eos % (Auto) 1.4, Baso % (Auto) 0.3, Neut # (Auto) 6.3, Lymph # (Auto) 0.7, [place] # (Auto) 0.3, Eos # (Auto) 0.1, Baso # (Auto) 0.0, Sodium 138, Potassium 4.2, Chloride 104, Carbon Dioxide 30, Anion Gap 8.2, BUN 12, Creatinine 0.80, Estimated Creat Clear 74, Estimated GFR 74, Est GFR ( Amer) 90, Glucose 122 H, Calcium 8.2 L I & O for Last 24 hours: Intake & Output 09/06/23 09/07/23 09/08/23 09/09/23 23:59 23:59 23:59 23:59 Intake Total 100 / 100 820 / 820 680 / 680 Output Total 400 / 400 2425 / 3625 1800 / 1800 Balance -300 / -300 -1605 / -2805 -1120 / -1120 Weight 121 kg 127 kg 125.6 kg Constitutional Constitutional: no acute distress *Routine HEENT Exam Head: Present normocephalic Eye: Present EOMI and PERRL ENT: Present mucous membranes moist *Routine Neck Exam Neck: Present supple; Absent lymphadenopathy *Routine Respiratory Exam Respiratory: Present CTA bilaterally *Routine Cardiovascular Exam Cardiovascular: Present RRR *Routine Abdominal Exam Abdominal: Present soft and normoactive bowel sounds; Absent tenderness *Routine Extremities Exam Extremities: Absent cyanosis, clubbing or edema *Routine Skin Exam Skin: Present warm; Absent rash *Routine Neurological Exam Neurological: Present alert and oriented X3 Assessment and Plan *Assessment and plan (1) Pericardial effusion with cardiac tamponade: Status: Acute Category: Medical Code(s): I31.39 - Other pericardial effusion (noninflammatory); I31.4 - Cardiac tamponade (2) Status post pericardiocentesis: Status: Acute Category: Surgical Code(s): Z98.890 - Other specified postprocedural states (3) Tachycardia: Status: Acute Category: Medical Code(s): R00.0 - Tachycardia, unspecified (4) COPD (chronic obstructive pulmonary disease): Status: Acute Qualifiers: COPD type: unspecified COPD Qualified Code(s): J44.9 - Chronic obstructive pulmonary disease, unspecified Category: Medical Code(s): J44.9 - Chronic obstructive pulmonary disease, unspecified (5) HTN (hypertension): Status: Acute Qualifiers: Hypertension type: unspecified Qualified Code(s): I10 - Essential (primary) hypertension Category: Medical Code(s): I10 - Essential (primary) hypertension (6) Morbid obesity with BMI of 40.0-44.9, adult: Status: Acute Category: Medical Code(s): E66.01 - Morbid (severe) obesity due to excess calories; Z68.41 - Body mass index [BMI] 40.0-44.9, adult Plan 53-year-old morbidly obese female who is transferred from [facility] for evaluation of pericardial effusion with suspected tamponade. Upon arrival patient is complaining of persistent shortness of breath and generally feeling unwell, 4 L nasal cannula is in place, no other acute complaints at this time. CT from outside facility was concerning for cardiac tamponade due to large pericardial effusion. Bedside emergency US confirmed the effusion on arrival. Patient was emergently taken for percutaneous pericardial drainage. Patient seen and evaluated post procedure. 850 serosanguineous fluid was drained. drainage on gravity. Findings was discussed with ER provider pre-procedure and and cardiology post- procedure. Agreed with admission. Plan as follow: -Pericardial effusion with cardiac tamponade s/p percutaneous pericardiocentesis: Admit patient for continuous cardiac telemetry. Dispo step down cardiology on board. follow their recommendation. Drainage to gravity assess for amount of fluid collected. monitor for HR, BP and tamponade signs (wide pulse, low voltage) obtaine CBC.CMP lactic acid and PT/INR STAT CXR stat. on cefepime 2g TID IV post-procedure. monitor for sepsis pain management. - Tachycardia. Resolved. -COPD: Does not seem to be on exacerbation . Currently on 2L monitor O2 sat,. maximize sat, Duoneb q 6h -Hx of HTN. not on any current medication. continue monitoring cardiac diet - Morbidly obese: educated on weight loss. and life style changes. PCP to follow up BMI. SCD for DVT ppx. will deferred further anticoagulation if need to cardiology team. Protonix for DVT ppx. Case discussed with dahollyther bedside post- procedure. They agrees with the plan Full code DC when ok with cardiology, CT neck negative for any fluid collection, no visible fluctuation or swelling on Palpation.
[2023-09-09] MEDS: QUETIAPINE 100MG TABLET 300 MG PO (21:37)
[2023-09-09] MEDS: PANTOPRAZOLE 40MG TABLET 40 MG PO (21:37)
--- NOTE | 2023-09-09 23:56 | XR_ITS ---
PROCEDURE INFORMATION: Exam: XR Chest Exam date and time: 09/10/2023 12:53 AM Age: 53 years old Clinical indication: Pain; Angina pectoris; Additional info: Chest pain S/P percutaneous pericardial drainage TECHNIQUE: Imaging protocol: Radiologic exam of the chest. Views: 1 view. COMPARISON: CT CHEST WO CON 09/09/2023 8:10 AM FINDINGS: Lungs: Lung volumes are slightly low with subsegmental atelectasis in the lower lungs. No prominent pulmonary consolidation evident. Pleural spaces: Small left pleural effusion. No pneumothorax. Heart/Mediastinum: Cardiac silhouette appears mildly enlarged and stable. Bones/joints: Unremarkable. IMPRESSION: Mild hypoaeration changes and small left pleural effusion
--- NOTE | 2023-09-09 23:58 | PC.NURSE ---
Patient complaining of severe pain to left chest wall, patient states the pain is 10/10 and is worse with inspiration. Blood pressure is 137/82, Heart rate 110, oxygen was 87% on room air, applied 2LNC and sats up to 93% Respirations 22. Jc was notified of patients complaints. Orders received for a stat EKG and Chest x-ray.
[2023-09-10] VITALS (17 sets, daily range): BP systolic 91–162; BP diastolic 59–89; PULSE 81–110; RESP 16–22; TEMP 36.4–37; O2SAT 87–100; BMI 43.9
--- NOTE | 2023-09-10 | ECG_ITS ---
APPROVED REPORT Exam: Resting ECG HR:106 bpm ECG Measurements Heart Rate 106 AXES CO 179 P 47 QRSd 104 QRS 53 QT 346 T 64 QTc 408 Conclusion SINUS TACHYCARDIA NONSPECIFIC ST & T-WAVE ABNORMALITY ABNORMAL RHYTHM ECG UNCONFIRMED REPORT Electronically signed by : Damon Lenz MD 09/11/2023 17:30:37
[2023-09-10] MEDS: MORPHINE 2MG/ML SYRINGE 2 MG IV (00:30)
[2023-09-10 01:16] LABS: Troponin I < 0.01 ng/ml (0.00-0.034)
[2023-09-10] MEDS: CEFEPIME HCL 2 GM in 0.9 % SODIUM CHLORIDE 100 ML IV ×3 (04:58→20:35)
[2023-09-10] MEDS: IPRATROPIUM/ALBUTEROL 3 ML NEB IH ×3 (06:28→18:20)
[2023-09-10] MEDS: LEVOTHYROXINE 150MCG (0.15MG)TAB 150 MCG PO (06:35)
--- NOTE | 2023-09-10 06:35 | PC.NURSE ---
Patient has rested off and on this shift. After morphine given patient was able to rest better. Still complains of pain to left chest wall with any excertion. Drainage in pericardial drain is minimal at 25ML- bright red blood. Vitals have been stable, heart rate remains elevated >100. Currently patient is on 2LNC and maintaining >90%. No acute changes. Call worley, personal belongings, bedside table, and water pitcher all within reach. Plan of care and stepdown policies continue.
[2023-09-10] MEDS: NICOTINE 21MG/24HR PATCH 21 MG TD (09:37)
[2023-09-10] MEDS: BUPRENORPHINE/NALOXONE 8MG/2MG ODT 2 EACH SL (09:37)
[2023-09-10] MEDS: GABAPENTIN 800MG TABLET 800 MG PO ×3 (09:37→20:36)
[2023-09-10] MEDS: VENLAFAXINE XR 75MG CAPSULE 75 MG PO (09:37)
[2023-09-10] MEDS: BUSPIRONE HCL 10 MG TABLET 15 MG PO ×3 (09:37→20:35)
[2023-09-10 11:32] LABS: Basophils % 0.3 % (0.1-2.0); Eosinophils # 0.1 K/mm3 (0.0-0.4); Eosinophils % 2.5 % (0.1-12.0); Hemoglobin 10.4 g/dL (12.2-16.2); Lymphocytes % 16.7 % (10-50); Mean Corpuscular HGB Conc 32.5 g/dL (31.8-35.4); Mean Corpuscular Hemoglobin 28.2 pg (27.0-31.2); Mean Corpuscular Volume 86.8 fl (81-99); Mean Platelet Volume 7.7 fl (7.4-10.4); Monocytes # 0.3 K/mm3 (0.1-1.0); Monocytes % 4.7 % (1.7-9.3); Neutrophils # 4.3 K/mm3 (1.8-7.8); Neutrophils % 75.8 % (37.0-80.0); Platelet Count 271 K/mm3 (142-424); Red Blood Count 3.69 M/mm3 (4.20-5.40); Red Cell Distribution Width 13.4 % (11.5-17.5); White Blood Count 5.7 K/mm3 (4.8-10.8)
[2023-09-10 11:35] LABS: Anion Gap 7.2 mEq/L (5-15); Blood Urea Nitrogen 11 mg/dl (7-17); Calcium 7.8 mg/dl (8.4-10.2); Carbon Dioxide 34 mmol/L (22.0-30.0); Chloride 104 mmol/L (98-107); Creatinine Clearance Estimated 74 mL/min (50-200); Estimated Glomerular Filt Rate 74 ml/min (>60); GFR (African American) 90 ML/MIN (>60); Glucose 100 mg/dl (74-100); Potassium 4.2 mmoL/L (3.5-5.1); Sodium 141 mmol/L (136-145)
--- NOTE | 2023-09-10 16:20 | P.PN_ITS ---
Subjective *Date: 09/10/23 *Time: 16:20 Interval history: patient was seen and evaluated at the bedside. No reported acute events overnight, denies chest pain, shortness of breath, nausea, vomiting, abdominal pain. Has pericardial drain, not draining any much amount of fluid Exam Data for Last 24 hours Vital signs and Labs for Last 24 Hours: Temp Pulse Resp BP Pulse Ox O2 Del Method O2 Flow Rate 97.6 F 90 18 143/59 H 97 Room Air 2 09/10/23 15:20 09/10/23 15:20 09/10/23 15:20 09/10/23 15:20 09/10/23 15:20 09/10/23 15:27 09/10/23 15:20 Laboratory Results - last 24 hr 09/10/23 00:35: Troponin I < 0.01 09/10/23 11:14: WBC 5.7, RBC 3.69 L, Hgb 10.4 L, Hct 32.0 L, MCV 86.8, MCH 28.2, MCHC 32.5, RDW 13.4, Plt Count 271, MPV 7.7, Neut % (Auto) 75.8, Lymph % (Auto) 16.7, [place] % (Auto) 4.7, Eos % (Auto) 2.5, Baso % (Auto) 0.3, Neut # (Auto) 4.3, Lymph # (Auto) 1.0, [place] # (Auto) 0.3, Eos # (Auto) 0.1, Baso # (Auto) 0.0, Sodium 141, Potassium 4.2, Chloride 104, Carbon Dioxide 34 H, Anion Gap 7.2, BUN 11, Creatinine 0.80, Estimated Creat Clear 74, Estimated GFR 74, Est GFR ( Amer) 90, Glucose 100, Calcium 7.8 L I & O for Last 24 hours: Intake & Output 09/07/23 09/08/23 09/09/23 09/10/23 23:59 23:59 23:59 23:59 Intake Total 100 / 100 820 / 820 1160 / 1500 1080 / 1080 Output Total 400 / 400 2425 / 3625 2100 / 2300 625 / 625 Balance -300 / -300 -1605 / -2805 -940 / -800 455 / 455 Weight 121 kg 127 kg 125.6 kg 127.1 kg Microbiology Reports for the Last 24 Hours: Microbiology 09/08/23 10:05 Pericardial Fluid - Pericardial Gram Stain - Final Constitutional Constitutional: no acute distress *Routine HEENT Exam Head: Present normocephalic Eye: Present EOMI and PERRL ENT: Present mucous membranes moist *Routine Neck Exam Neck: Present supple; Absent lymphadenopathy *Routine Respiratory Exam Respiratory: Present CTA bilaterally *Routine Cardiovascular Exam Cardiovascular: Present RRR *Routine Abdominal Exam Abdominal: Present soft and normoactive bowel sounds; Absent tenderness *Routine Extremities Exam Extremities: Absent cyanosis, clubbing or edema *Routine Skin Exam Skin: Present warm; Absent rash *Routine Neurological Exam Neurological: Present alert and oriented X3 Assessment and Plan *Assessment and plan (1) Pericardial effusion with cardiac tamponade: Status: Acute Category: Medical Code(s): I31.39 - Other pericardial effusion (noninflammatory); I31.4 - Cardiac tamponade (2) Status post pericardiocentesis: Status: Acute Category: Surgical Code(s): Z98.890 - Other specified postprocedural states (3) Tachycardia: Status: Acute Category: Medical Code(s): R00.0 - Tachycardia, unspecified (4) COPD (chronic obstructive pulmonary disease): Status: Acute Qualifiers: COPD type: unspecified COPD Qualified Code(s): J44.9 - Chronic obstructive pulmonary disease, unspecified Category: Medical Code(s): J44.9 - Chronic obstructive pulmonary disease, unspecified (5) HTN (hypertension): Status: Acute Qualifiers: Hypertension type: unspecified Qualified Code(s): I10 - Essential (primary) hypertension Category: Medical Code(s): I10 - Essential (primary) hypertension (6) Morbid obesity with BMI of 40.0-44.9, adult: Status: Acute Category: Medical Code(s): E66.01 - Morbid (severe) obesity due to excess calories; Z68.41 - Body mass index [BMI] 40.0-44.9, adult Plan 53-year-old morbidly obese female who is transferred from [facility] for evaluation of pericardial effusion with suspected tamponade. Upon arrival patient is complaining of persistent shortness of breath and generally feeling unwell, 4 L nasal cannula is in place, no other acute complaints at this time. CT from outside facility was concerning for cardiac tamponade due to large pericardial effusion. Bedside emergency US confirmed the effusion on arrival. Patient was emergently taken for percutaneous pericardial drainage. Patient seen and evaluated post procedure. 850 serosanguineous fluid was drained. drainage on gravity. Findings was discussed with ER provider pre- procedure and and cardiology post- procedure. Agreed with admission. Plan as follow: -Pericardial effusion with cardiac tamponade s/p percutaneous pericardiocentesis: Admit patient for continuous cardiac telemetry. Dispo step down cardiology on board. follow their recommendation. Drainage to gravity assess for amount of fluid collected. monitor for HR, BP and tamponade signs (wide pulse, low voltage) obtain CBC CMP lactic acid and PT/INR STAT on cefepime 2g TID IV monitor for sepsis pain management. - Tachycardia. Resolved. -COPD: Does not seem to be on exacerbation . Currently on 2L monitor O2 sat,. maximize sat, Duoneb q 6h -Hx of HTN. not on any current medication. continue monitoring cardiac diet - Morbidly obese: educated on weight loss. and life style changes. PCP to follow up BMI. SCD for DVT ppx. will deferred further anticoagulation if need to cardiology team. Protonix for DVT ppx. Case discussed with sade bedside post- procedure. They agrees with the plan Full code DC when pericardial drain is taken out and when ok with cardiology, stable for dc from medical standpoint
--- NOTE | 2023-09-10 16:42 | PC.NURSE ---
pt has ambualted to and from the bathroom numerous times with assist x 1 by staff. pt has voided large amounts of unmeasured urine each time. pt has been up to the chair since approx 1030 this am. pt has had minimal to no output via pericardial drain this shift. small amount present at start of shift, same amount remains at this time. pt lung sounds are clear t/o. bowel sounds are active. pt states it has been awhile since she has had a bowel mvmt. pt was offered options for assistance with a bm . pt states that she typically just waits until it happens, then it does and refused any options of assistance. pt is a/o x 4, nad noted.
[2023-09-10] MEDS: QUETIAPINE 100MG TABLET 300 MG PO (20:36)
[2023-09-10] MEDS: PANTOPRAZOLE 40MG TABLET 40 MG PO (20:36)
[2023-09-11] VITALS: BP 160/79; PULSE 100; PULSE 90; RESP 16; TEMP 36.6; O2SAT 94
--- NOTE | 2023-09-11 | CA_ITS ---
APPROVED REPORT EXAM: Limited 2D Echocardiogram Carbon Rod Inserter: Liliane Martins CRT Ht: 218 ft 8 in Wt: 280lbs BSA: 33.32 BP: 98/80 mmHg Indications: Post pericardiocentesis 09/07/23, evaluate pericardial effusion Other Information Study Quality: Fair Conclusion This is a limited TTE to evaluate for pericardial effusion. Limited windows were obtained. There is a small sized, loculated pericardial effusion noted posteriorly and measuring up to 0.6 cm in diastole. The anterior pericardial pocket is no longer visualized. There is no further evidence of RV invagination during diastole. Compared to prior study from 09/08/2023, the effusion appears improved. Electronically signed by : Roxane Yanez MD 09/11/2023 11:17:17
[2023-09-11] MEDS: CEFEPIME HCL 2 GM in 0.9 % SODIUM CHLORIDE 100 ML IV (03:53)
[2023-09-11 04:00] VITALS: BP 107/74; PULSE 97; PULSE 98; RESP 17; TEMP 36.7; O2SAT 97; BMI 43.9
--- NOTE | 2023-09-11 05:52 | PC.NURSE ---
Patient has rested well this shift with no acute changes. Has been up to the bathroom several times this shift. Pericardial drain remains in place, no output is noted. Patient has not c/o pain or shortness of breath. Lungs remain clear to auscultation, non pitting edema to BLE. Call worley, water pitcher, bedside table, and personal belongings all with in reach.
[2023-09-11] MEDS: LEVOTHYROXINE 150MCG (0.15MG)TAB 150 MCG PO (06:07)
[2023-09-11 06:21] VITALS: PULSE 91; PULSE 92
[2023-09-11] MEDS: IPRATROPIUM/ALBUTEROL 3 ML NEB IH (06:21)
[2023-09-11 07:33] LABS: Basophils % 0.4 % (0.1-2.0); Eosinophils # 0.2 K/mm3 (0.0-0.4); Eosinophils % 2.7 % (0.1-12.0); Hematocrit 30.2 % (37.0-47.0); Hemoglobin 10.1 g/dL (12.2-16.2); Lymphocytes # 1.1 K/mm3 (0.7-4.5); Lymphocytes % 19.1 % (10-50); Mean Corpuscular HGB Conc 33.5 g/dL (31.8-35.4); Mean Corpuscular Hemoglobin 28.3 pg (27.0-31.2); Mean Corpuscular Volume 84.4 fl (81-99); Mean Platelet Volume 7.2 fl (7.4-10.4); Monocytes # 0.2 K/mm3 (0.1-1.0); Monocytes % 4.3 % (1.7-9.3); Neutrophils # 4.1 K/mm3 (1.8-7.8); Neutrophils % 73.6 % (37.0-80.0); Platelet Count 261 K/mm3 (142-424); Red Blood Count 3.57 M/mm3 (4.20-5.40); Red Cell Distribution Width 13.6 % (11.5-17.5); White Blood Count 5.5 K/mm3 (4.8-10.8)
[2023-09-11 07:51] LABS: Anion Gap 6.9 mEq/L (5-15); Blood Urea Nitrogen 13 mg/dl (7-17); Calcium 7.9 mg/dl (8.4-10.2); Carbon Dioxide 31 mmol/L (22.0-30.0); Chloride 102 mmol/L (98-107); Creatinine Clearance Estimated 85 mL/min (50-200); Estimated Glomerular Filt Rate 87 ml/min (>60); GFR (African American) 105 ML/MIN (>60); Glucose 118 mg/dl (74-100); Potassium 3.9 mmoL/L (3.5-5.1); Sodium 136 mmol/L (136-145)
--- NOTE | 2023-09-11 07:54 | P.PN_ITS ---
Subjective *Date: 09/11/23 *Time: 07:54 Medical Exam Vital signs and Labs for Last 24 Hours: Vital Signs Temp Pulse Pulse Resp BP Pulse Ox O2 Del Method 09/11/23 04:00 97 H 09/11/23 00:00 100 H 09/11/23 04:00 98.1 F 98 H 17 107/74 L 97 Nasal Cannula 09/11/23 00:00 98 F 90 16 160/79 H 94 L Nasal Cannula 09/10/23 20:00 99 H 09/10/23 20:00 98 H 09/10/23 20:00 98.1 F 92 H 17 162/89 H 95 09/10/23 19:00 Room Air 09/10/23 18:56 Nasal Cannula 09/10/23 18:55 82 09/10/23 18:55 81 09/10/23 16:39 Nasal Cannula 09/10/23 16:00 95 H 09/10/23 15:27 Room Air 09/10/23 15:20 97.6 F 90 18 143/59 H 97 Nasal Cannula 09/10/23 12:00 100 H 09/10/23 08:00 100 H 09/10/23 13:00 Nasal Cannula 09/10/23 09:40 88 92 L Nasal Cannula 09/10/23 11:45 Nasal Cannula 09/10/23 11:40 84 09/10/23 11:40 86 09/10/23 11:09 98.6 F 91 H 16 146/73 H 94 L Nasal Cannula 09/10/23 11:06 98.6 F 91 H 16 146/73 H 94 L Nasal Cannula 09/10/23 09:00 Nasal Cannula 09/10/23 08:00 92 H 20 91/77 L 97 Nasal Cannula O2 Flow Rate FiO2 09/11/23 04:00 09/11/23 00:00 09/11/23 04:00 09/11/23 00:00 09/10/23 20:00 09/10/23 20:00 09/10/23 20:00 09/10/23 19:00 09/10/23 18:56 2 28 09/10/23 18:55 09/10/23 18:55 09/10/23 16:39 3 09/10/23 16:00 09/10/23 15:27 09/10/23 15:20 2 09/10/23 12:00 09/10/23 08:00 09/10/23 13:00 2 09/10/23 09:40 2 09/10/23 11:45 2 09/10/23 11:40 09/10/23 11:40 09/10/23 11:09 2 09/10/23 11:06 2 09/10/23 09:00 2 09/10/23 08:00 2 Intake and Output 09/10/23 09/10/23 09/11/23 15:59 23:59 07:59 Intake Total 580 / 1880 800 / 1880 280 / 280 Output Total 0 / 1575 750 / 1575 700 / 700 Balance 580 / 305 50 / 305 -420 / -420 Intake: Intake, Oral Amount 480 / 1380 600 / 1380 180 / 180 Intake, Total IV Amount 100 / 400 200 / 400 100 / 100 Cefepime HCl 2 gm In 0.9 % 100 / 400 200 / 400 100 / 100 Sodium Chloride 100 ml @ 200 mls/hr IV Q8H [facility] Rx#:[id number] Output: Output, Urine Amount 0 / 1550 750 / 1550 700 / 700 Output, Drainage Amount 0 / 25 0 / 0 Anterior Chest 0 / 25 0 / 0 Other: Number of Unmeasured Voids 1 1 1 Weight 127.1 kg Patient Weight 09/11/23 23:59 Weight 127.1 kg Laboratory Results - last 24 hr 09/10/23 11:14: WBC 5.7, RBC 3.69 L, Hgb 10.4 L, Hct 32.0 L, MCV 86.8, MCH 28.2, MCHC 32.5, RDW 13.4, Plt Count 271, MPV 7.7, Neut % (Auto) 75.8, Lymph % (Auto) 16.7, [place] % (Auto) 4.7, Eos % (Auto) 2.5, Baso % (Auto) 0.3, Neut # (Auto) 4.3, Lymph # (Auto) 1.0, [place] # (Auto) 0.3, Eos # (Auto) 0.1, Baso # (Auto) 0.0, Sodium 141, Potassium 4.2, Chloride 104, Carbon Dioxide 34 H, Anion Gap 7.2, BUN 11, Creatinine 0.80, Estimated Creat Clear 74, Estimated GFR 74, Est GFR ( Amer) 90, Glucose 100, Calcium 7.8 L I & O for Labs for Last 24 Hours: Intake & Output 09/08/23 09/09/23 09/10/23 09/11/23 23:59 23:59 23:59 23:59 Intake Total 820 / 820 1160 / 1500 1880 / 1880 280 / 280 Output Total 2425 / 3625 2100 / 2300 1375 / 1575 700 / 700 Balance -1605 / -2805 -940 / -800 505 / 305 -420 / -420 Weight 127 kg 125.6 kg 127.1 kg 127.1 kg Microbiology Reports for the Last 24 Hours: Microbiology 09/08/23 10:05 Pericardial Fluid - Pericardial Gram Stain - Final The patient's infection will respond to the chosen ABx?: Yes Is the patient receiving the right drug, dose, and route?: Yes Could a more targeted ABx be ordered?: No (BLOOD CX PENDING AND PERICARDIAL FLUID SHOWING NO GROWTH)
[2023-09-11 08:00] VITALS: BP 126/78; PULSE 90; PULSE 97; RESP 14; TEMP 36.9; O2SAT 93; O2SAT 94
[2023-09-11] MEDS: NICOTINE 21MG/24HR PATCH 21 MG TD (08:41)
[2023-09-11] MEDS: BUPRENORPHINE/NALOXONE 8MG/2MG ODT 2 EACH SL (08:41)
[2023-09-11] MEDS: BUSPIRONE HCL 10 MG TABLET 15 MG PO (08:41)
[2023-09-11] MEDS: VENLAFAXINE XR 75MG CAPSULE 75 MG PO (08:41)
[2023-09-11] MEDS: GABAPENTIN 800MG TABLET 800 MG PO (08:41)
--- NOTE | 2023-09-11 09:09 | EXP.ACUTE.PN ---
Subjective *Date: 09/11/23 *Time: 09:09 Medical Exam Vital signs and Labs for Last 24 Hours: Vital Signs Temp Pulse Pulse Resp BP Pulse Ox O2 Del Method 09/11/23 08:56 Nasal Cannula 09/11/23 08:00 98.4 F 97 H 14 126/78 94 L Room Air 09/11/23 06:21 91 H 09/11/23 06:21 92 H 09/11/23 04:00 97 H 09/11/23 00:00 100 H 09/11/23 04:00 98.1 F 98 H 17 107/74 L 97 Nasal Cannula 09/11/23 00:00 98 F 90 16 160/79 H 94 L Nasal Cannula 09/10/23 20:00 99 H 09/10/23 20:00 98 H 09/10/23 20:00 98.1 F 92 H 17 162/89 H 95 09/10/23 19:00 Room Air 09/10/23 18:56 Nasal Cannula 09/10/23 18:55 82 09/10/23 18:55 81 09/10/23 16:39 Nasal Cannula 09/10/23 16:00 95 H 09/10/23 15:27 Room Air 09/10/23 15:20 97.6 F 90 18 143/59 H 97 Nasal Cannula 09/10/23 12:00 100 H 09/10/23 13:00 Nasal Cannula 09/10/23 09:40 88 92 L Nasal Cannula 09/10/23 11:45 Nasal Cannula 09/10/23 11:40 84 09/10/23 11:40 86 09/10/23 11:09 98.6 F 91 H 16 146/73 H 94 L Nasal Cannula 09/10/23 11:06 98.6 F 91 H 16 146/73 H 94 L Nasal Cannula O2 Flow Rate FiO2 09/11/23 08:56 2 09/11/23 08:00 09/11/23 06:21 09/11/23 06:21 09/11/23 04:00 09/11/23 00:00 09/11/23 04:00 09/11/23 00:00 09/10/23 20:00 09/10/23 20:00 09/10/23 20:00 09/10/23 19:00 09/10/23 18:56 2 28 09/10/23 18:55 09/10/23 18:55 09/10/23 16:39 3 09/10/23 16:00 09/10/23 15:27 09/10/23 15:20 2 09/10/23 12:00 09/10/23 13:00 2 09/10/23 09:40 2 09/10/23 11:45 2 09/10/23 11:40 09/10/23 11:40 09/10/23 11:09 2 09/10/23 11:06 2 Intake and Output 09/10/23 09/11/23 09/11/23 23:59 07:59 15:59 Intake Total 800 / 1880 280 / 400 120 / 400 Output Total 750 / 1575 700 / 700 0 / 700 Balance 50 / 305 -420 / -300 120 / -300 Intake: Intake, Oral Amount 600 / 1380 180 / 300 120 / 300 Intake, Total IV Amount 200 / 400 100 / 100 Cefepime HCl 2 gm In 0.9 % 200 / 400 100 / 100 Sodium Chloride 100 ml @ 200 mls/hr IV Q8H [facility] Rx#:[id number] Output: Output, Urine Amount 750 / 1550 700 / 700 0 / 700 Output, Drainage Amount 0 / 25 0 / 0 Anterior Chest 0 / 25 0 / 0 Other: Number of Unmeasured Voids 1 1 1 Weight 127.1 kg Patient Weight 09/11/23 23:59 Weight 127.1 kg Laboratory Results - last 24 hr 09/10/23 11:14: WBC 5.7, RBC 3.69 L, Hgb 10.4 L, Hct 32.0 L, MCV 86.8, MCH 28.2, MCHC 32.5, RDW 13.4, Plt Count 271, MPV 7.7, Neut % (Auto) 75.8, Lymph % (Auto) 16.7, [place] % (Auto) 4.7, Eos % (Auto) 2.5, Baso % (Auto) 0.3, Neut # (Auto) 4.3, Lymph # (Auto) 1.0, [place] # (Auto) 0.3, Eos # (Auto) 0.1, Baso # (Auto) 0.0, Sodium 141, Potassium 4.2, Chloride 104, Carbon Dioxide 34 H, Anion Gap 7.2, BUN 11, Creatinine 0.80, Estimated Creat Clear 74, Estimated GFR 74, Est GFR ( Amer) 90, Glucose 100, Calcium 7.8 L 09/11/23 06:30: WBC 5.5, RBC 3.57 L, Hgb 10.1 L, Hct 30.2 L, MCV 84.4, MCH 28.3, MCHC 33.5, RDW 13.6, Plt Count 261, MPV 7.2 L, Neut % (Auto) 73.6, Lymph % (Auto) 19.1, [place] % (Auto) 4.3, Eos % (Auto) 2.7, Baso % (Auto) 0.4, Neut # (Auto) 4.1, Lymph # (Auto) 1.1, [place] # (Auto) 0.2, Eos # (Auto) 0.2, Baso # (Auto) 0.0, Sodium 136, Potassium 3.9, Chloride 102, Carbon Dioxide 31 H, Anion Gap 6.9, BUN 13, Creatinine 0.70, Estimated Creat Clear 85, Estimated GFR 87, Est GFR ( Amer) 105, Glucose 118 H, Calcium 7.9 L I & O for Labs for Last 24 Hours: Intake & Output 09/08/23 09/09/23 09/10/23 09/11/23 23:59 23:59 23:59 23:59 Intake Total 820 / 820 1160 / 1500 1880 / 1880 400 / 400 Output Total 2425 / 3625 2100 / 2300 1375 / 1575 700 / 700 Balance -1605 / -2805 -940 / -800 505 / 305 -300 / -300 Weight 127 kg 125.6 kg 127.1 kg 127.1 kg Microbiology Reports for the Last 24 Hours: Microbiology 09/07/23 21:40 Blood Blood Culture - Preliminary 09/07/23 21:28 Blood Blood Culture - Preliminary 09/08/23 10:05 Pericardial Fluid - Pericardial Gram Stain - Final Assessment and Plan *Assessment and plan (1) Pericardial effusion with cardiac tamponade: Status: Acute Category: Medical Code(s): I31.39 - Other pericardial effusion (noninflammatory); I31.4 - Cardiac tamponade (2) Status post pericardiocentesis: Status: Acute Category: Surgical Code(s): Z98.890 - Other specified postprocedural states (3) Tachycardia: Status: Acute Category: Medical Code(s): R00.0 - Tachycardia, unspecified (4) COPD (chronic obstructive pulmonary disease): Status: Acute Qualifiers: COPD type: unspecified COPD Qualified Code(s): J44.9 - Chronic obstructive pulmonary disease, unspecified Category: Medical Code(s): J44.9 - Chronic obstructive pulmonary disease, unspecified (5) HTN (hypertension): Status: Acute Qualifiers: Hypertension type: unspecified Qualified Code(s): I10 - Essential (primary) hypertension Category: Medical Code(s): I10 - Essential (primary) hypertension (6) Morbid obesity with BMI of 40.0-44.9, adult: Status: Acute Category: Medical Code(s): E66.01 - Morbid (severe) obesity due to excess calories; Z68.41 - Body mass index [BMI] 40.0-44.9, adult Plan 53-year-old morbidly obese female who is transferred from [facility] for evaluation of pericardial effusion with suspected tamponade. Upon arrival patient is complaining of persistent shortness of breath and generally feeling unwell, 4 L nasal cannula is in place, no other acute complaints at this time. CT from outside facility was concerning for cardiac tamponade due to large pericardial effusion. Bedside emergency US confirmed the effusion on arrival. Patient was emergently taken for percutaneous pericardial drainage. Patient seen and evaluated post procedure. 850 serosanguineous fluid was drained. drainage on gravity. Findings was discussed with ER provider pre-procedure and and cardiology post- procedure. Agreed with admission. Plan as follow: -Pericardial effusion with cardiac tamponade s/p percutaneous pericardiocentesis: Admit patient for continuous cardiac telemetry. Dispo step down cardiology on board. follow their recommendation. Drainage to gravity assess for amount of fluid collected. monitor for HR, BP and tamponade signs (wide pulse, low voltage) obtain CBC CMP lactic acid and PT/INR STAT on cefepime 2g TID IV monitor for sepsis pain management. - Tachycardia. Resolved. -COPD: Does not seem to be on exacerbation . Currently on 2L monitor O2 sat,. maximize sat, Duoneb q 6h -Hx of HTN. not on any current medication. continue monitoring cardiac diet - Morbidly obese: educated on weight loss. and life style changes. PCP to follow up BMI. SCD for DVT ppx. will deferred further anticoagulation if need to cardiology team. Protonix for DVT ppx. Case discussed with daugther bedside post- procedure. They agrees with the plan Full code DC when pericardial drain is taken out and when ok with cardiology, stable for dc from medical standpoint
--- NOTE | 2023-09-11 09:25 | PC.NURSE ---
pt up to chair per PT, oxygen saturation 97% on 2LNC, weaned oxygen to 1LNC and oxygen saturations remained 95-97%
--- NOTE | 2023-09-11 09:42 | HMH.OTEV ---
OT Inpatient Evaluation Rehab OT IP Evaluation Start: 09/10/23 10:16 Freq: ONCE Status: Active Protocol: [facility]11[facility]23 09[facility]36 [facility] (Rec: 09/11/23 09:42 [facility] [id number]) Rehab OT IP Assessment Subjective History Pt oriented x 3 on arrival. Pt agreeable to engage in therapy evaluation. Pt admitted on 09/07/23 due to chest pain. History and physical report: This is a 53-year-old morbidly obese female who is transferred from [facility] for evaluation of pericardial effusion with suspected tamponade. Patient PMHx included but not limited to COPD and former smoker. Unknown any previous cardiac history. Patient was reportedly evaluated outside hospital where CT imaging was concerning for tamponade, patient was tachycardic to the 130s and received multiple liters of crystalloid with partial resolution of tachycardia. Upon arrival patient is complaining of persistent shortness of breath and generally feeling unwell, 4 L nasal cannula is in place , no other acute complaints at this time. Patient was emergently taken into [facility] labs. Admitted post procedure for further management. Subjective I am really from [place]. Pt reports prior to being in the hospital she lived at home with her daughter and family. Pt claims normally she is independent with all ADLs and IADLs. Pt claims she doesn't require any type of AE during ADLs or functional transfers. She no longer drives. Objective Patient Orientation Person,Place,Birthday Right Upper Extremity Gross ROM WFL Left Upper Extremity Gross ROM WFL Bed Mobility bed mobility-scooting,bed mobility - supine/sit Assist Level Supervision/Stand by Transfer Training Sit/Stand Transfer Assist Level Contact Guard/Hand Hold Chair Transfer Ability Contact Guard/Hand Hold Chair Transfer Technique Sit to/from Ambulatory Chair Transfer Assistive Devices None Lower Body Dressing Ability Standby Assistance Rehab OT IP prob,goals,plan Problems Date of Evaluation: 09/11/23 OT IP Problems Bed Mobility,Transfers,Balance ,Self care,Safety Rehab Potential Rehab Potential Good Equipment Needs Assistive Devices None / NA Plan OT intervention Plan Bed Mobility,Transfers,Balance ,Self care,Safety,Therapeutic Exercise OT Plan Frequency BID Duration LOS Discharge Goals Bed Mobility Ability Standby Assistance Sit to Stand Chair Transfer Ability Supervision/Stand by Chair Transfer Ability Supervision/Stand by Chair Transfer Technique Sit to/from Ambulatory Chair Transfer Assistive Devices None Feeding Ability Assist with Tray Set Up Lower Body Dressing Ability Standby Assistance Upper Body Dressing Ability Standby Assistance Bathing Ability Standby Assistance Performing Toilet Hygiene Ability Standby Assistance Overall Commode/Toilet Transfer Ability Independent Commode/Toilet Transfer Technique Sit to/from Ambulatory Commode/Toilet Transfer Assistive Grab Bars Devices Oral Care Assist Independent Decrease in Endurance Yes Discharge Plan OT Discharge Plan Pt appears to be close to baseline with functional transfers and ADL independence . Pt can return home with family once she is medically stable per physician. Pt would benefit from cardiac rehab following discharge. Eval Complexity Eval Charge Codes 26894 - Moderate Complexity PHYSICIAN CERTIFICATION: I certify the specified therapy services for Suma Harrell are required, authorized, and reviewed every 30 days.
--- NOTE | 2023-09-11 09:43 | HMH.PTEV ---
Physical Therapy Evaluation Rehab PT IP Evaluation Start: 09/10/23 10:16 Freq: ONCE Status: Active Protocol: Document 09/11/23 09:39 JERICHO (Rec: 09/11/23 09:43 PHORALEXIS [id number]) Subjective/History History History 53 yowf adm to [facility] with chest pain and possible cardiac tampenade. She was found to have pericardial effusion and a pericardial drain remains in place. She has PMH of COPD and HTN. She reports she lives with her daughter, 3-4 steps to enter the home, and she is generally independent with all mobility without AD. Subjective Subjective She reports no c/o this am. Agrees to OOB mobility assessment. New diagnosis of cancer in past 12 No months? Rehab PT IP Eval Objective Appearance Patient Behavior Appropriate Patient Orientation Person,Place,Time Difficulty following instructions none Speech Pattern Clear Ambulation Patient Able to Ambulate Yes Ambulation Observation IP General Gait Pattern Observation Shuffling Step Ambulation Distance (feet) 15 Ambulation Assistive Device None Ambulation Ability Supervision/Stand by Balance Ability to Arise Able, uses arms to help Sitting Balance Steady, safe Standing Balance Steady, wide stance Dynamic Sitting Balance Ability Good Dynamic Standing Balance Ability Good Transfers Bed Transfer Ability Supervision/Stand by Chair Transfer Ability Supervision/Stand by Sit to Stand Bed Transfer Ability Supervision/Stand by Sit to Stand Chair Transfer Ability Supervision/Stand by Rehab PT IP prob,goals,plan Problems Date of Evaluation: 09/11/23 PT IP Problems Bed Mobility,Transfers,Gait Rehab Potential Rehab Potential Good Plan PT Intervention Plan Bed Mobility,Transfers,Gait, Therapeutic Exercise PT Plan Frequency Daily Duration LOS Discharge Goals Bed Transfer Ability Independent Sit to Stand Chair Transfer Ability Independent Ambulation Assistive Device None Ambulation Distance (feet) 30 Discharge Plan PT Discharge Plan Pt is currently appropriate to return home once medically stable for d/c. Recommend outpatient cardiac rehab as appropriate after d/c. Eval Complexity Eval Charge Codes 24193 - High Complexity PHYSICIAN CERTIFICATION: I certify the specified therapy services for Suma Harrell are required, authorized, and reviewed every 30 days.
[2023-09-11 09:47] LABS: Adenovirus,PCR Not Detected (NotDetected); Coronavirus 19, PCR Not Detected (NotDetected); Coronavirus 229E Not Detected (NotDetected); Coronavirus NL63 Not Detected (NotDetected); Coronavirus OC43 Not Detected (NotDetected); Coronovirus HKU1,PCR Not Detected (NotDetected); Human Metapneumovirus Not Detected (NotDetected); Influenza A, PCR Not Detected (NotDetected); Influenza AH1, 2009 Not Detected (NotDetected); Influenza AH1, PCR Not Detected (NotDetected); Influenza AH3,PCR Not Detected (NotDetected); Influenza B, PCR Not Detected (NotDetected); Parainfluenza 1, PCR Not Detected (NotDetected); Parainfluenza 2, PCR Not Detected (NotDetected); Parainfluenza 3, PCR Not Detected (NotDetected); Parainfluenza 4, PCR Not Detected (NotDetected); Respiratory Syncytial Virus Not Detected (NotDetected); Rhinovirus/Enterovirus Not Detected (NotDetected)
--- NOTE | 2023-09-11 10:39 | PC.NURSE ---
Verified with cardiology and Dr Christie that patient is no longer sd and medsurg patient
--- NOTE | 2023-09-11 11:14 | P.PCN_ITS ---
[facility] Procedure Note Procedure Note:: Date: 09/11/2023 Time: 1116 Procedure: Pericardial drain removal Indication: Improvement/resolution of pericardial effusion Performed by: Debbie Ponce APRN Procedure summary: Scissors were used to snip the suture of the pericardial drain. The pericardial drain was then pulled from the chest wall/pericardium without any difficulty or complications. The patient tolerated this well with minimal discomfort. Complications: None
[2023-09-11 12:00] VITALS: BP 128/55; PULSE 82; PULSE 90; RESP 18; TEMP 36.9; O2SAT 95
--- NOTE | 2023-09-11 12:00 | PC.NURSE ---
cardiology removed pericardial drain and placed dressing, no drainage noted dressing cdi
[2023-09-11 12:11] LABS: Anti-Centromere B Antibodies <0.2 AI (0.0-0.9); Anti-DNA (DS) Ab Qn <1 IU/mL (0-9); Anti-Jo-1 <0.2 AI (0.0-0.9); Anti-Smith Antibody <0.2 AI (0.0-0.9); Antichromatin Antibodies <0.2 AI (0.0-0.9); Antiscleroderma-70 Antibodies <0.2 AI (0.0-0.9); RNP Antibodies 0.2 AI (0.0-0.9); Sjogren's Anti-SS-A <0.2 AI (0.0-0.9); Sjogren's Anti-SS-B <0.2 AI (0.0-0.9)
--- NOTE | 2023-09-11 12:39 | P.PN_ITS ---
Subjective Subjective Date: 09/11/23 Time: 09:00 Principal diagnosis: CP Interval history: No further output from drain over past 24hours. Pt denies CP, SOA but still feeling fatigued. Exam Data for Last 24 hours Vital signs and Labs for Last 24 Hours: Temp Pulse Resp BP Pulse Ox O2 Del Method O2 Flow Rate 98.4 F 82 18 128/55 L 95 Room Air 2 09/11/23 12:00 09/11/23 12:00 09/11/23 12:00 09/11/23 12:00 09/11/23 12:00 09/11/23 12:00 09/11/23 08:56 FiO2 28 09/10/23 18:56 Laboratory Results - last 24 hr 09/08/23 15:15: AYLIN Comment Comment, JODIE-1 Antibody <0.2, SS-A Antibody <0.2, SS- B Antibody <0.2, Sm (Natarajan) Antibody <0.2, SEWING MACHINE ADJUSTER Antibody 0.2, Scl-70 Scleroderma Ab <0.2, Double Strand DNA Ab <1, Chromatin Antibody <0.2, Centromere B Antibody <0.2 09/11/23 06:30: WBC 5.5, RBC 3.57 L, Hgb 10.1 L, Hct 30.2 L, MCV 84.4, MCH 28.3, MCHC 33.5, RDW 13.6, Plt Count 261, MPV 7.2 L, Neut % (Auto) 73.6, Lymph % (Auto) 19.1, [place] % (Auto) 4.3, Eos % (Auto) 2.7, Baso % (Auto) 0.4, Neut # (Auto) 4.1, Lymph # (Auto) 1.1, [place] # (Auto) 0.2, Eos # (Auto) 0.2, Baso # (Auto) 0.0, Sodium 136, Potassium 3.9, Chloride 102, Carbon Dioxide 31 H, Anion Gap 6.9, BUN 13, Creatinine 0.70, Estimated Creat Clear 85, Estimated GFR 87, Est GFR ( Amer) 105, Glucose 118 H, Calcium 7.9 L 09/11/23 09:45: Chlamy pneumoniae PCR TNP, Adenovirus (PCR) Not detected, B. pertussis DNA (PCR) TNP, Coronavirus OC43 (PCR) Not detected, Coronavirus HKU1 (PCR) Not detected, Coronavirus 229E (PCR) Not detected, SARS-CoV-2 (PCR) Not detected, Coronavirus NL63 (PCR) Not detected, Human Metapneumovir PCR Not detected, Influenza A (H1) PCR Not detected, Influ A (H1N1/09) PCR Not detected, Influenza A (H3) PCR Not detected, Influenza Type A (PCR) Not detected, Influenza Type B (PCR) Not detected, M. pneumoniae (PCR) TNP, Parainfluenza 1 (PCR) Not detected, Parainfluenza 2 (PCR) Not detected, Parainfluenza 3 (PCR) Not detected, Parainfluenza 4 (PCR) Not detected, RSV (PCR) Not detected, Entero/Rhino (PCR) Not detected I & O for Last 24 hours: Intake & Output 09/08/23 09/09/23 09/10/23 09/11/23 23:59 23:59 23:59 23:59 Intake Total 820 / 820 1160 / 1500 1880 / 1880 400 / 400 Output Total 2425 / 3625 2100 / 2300 1375 / 1575 700 / 700 Balance -1605 / -2805 -940 / -800 505 / 305 -300 / -300 Weight 279 lb 15.793 oz 276 lb 14.409 oz 280 lb 3.32 oz 280 lb 3.32 oz Microbiology Reports for the Last 24 Hours: Microbiology 09/08/23 10:05 Pericardial Fluid - Pericardial Gram Stain - Final 09/08/23 10:05 Pericardial Fluid - Pericardial Body Fluid Culture - Preliminary 09/07/23 21:40 Blood Blood Culture - Preliminary 09/07/23 21:28 Blood Blood Culture - Preliminary Constitutional Constitutional: no acute distress and cooperative *Routine HEENT Exam Eye: Present PERRL *Routine Respiratory Exam Respiratory: Present CTA bilaterally; Absent accessory muscle use, wheezes or crackles *Routine Cardiovascular Exam Cardiovascular: Present RRR, Normal S1 and Normal S2; Absent murmur, gallop or rubs Comments: pericardial drain sutured in place. <100mL bloody drainage *Routine Abdominal Exam Abdominal: Present soft; Absent tenderness *Routine Extremities Exam Extremities: Present pulses intact; Absent cyanosis or edema *Routine Skin Exam Skin: Present intact; Absent erythema or wounds *Routine Neurological Exam Neurological: Present alert and oriented X3 Routine Psychiatric Exam Psychiatric: Present cooperative Progress Note: A&P Assessment and plan (1) Pericardial effusion with cardiac tamponade: Status: Acute (2) Status post pericardiocentesis: Status: Acute (3) Tachycardia: Status: Acute (4) COPD (chronic obstructive pulmonary disease): Status: Acute (5) HTN (hypertension): Status: Acute (6) Morbid obesity with BMI of 40.0-44.9, adult: Status: Acute Assessment and Plan Assessment and Plan for All Diagnoses:: Acute Pericardial Effusion with Tamponade s/p percutaneous pericardiocentesis - new dx this admission following recent acute illness - 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 Drain removed. She is stable for DC home. Office f/u 1 week. Focused ECHO 1 mo or sooner if symptomatic.
--- NOTE | 2023-09-11 12:48 | P.DS_ITS ---
General Admission date:: 09/07/23 Discharge date: 09/11/23 HPI HPI HPI: This is a 53-year-old morbidly obese female who is transferred from [facility] for evaluation of pericardial effusion with suspected tamponade. Patient PMHx included but not limited to COPD and former smoker. Unknown any previous cardiac history. Patient was reportedly evaluated outside hospital where CT imaging was concerning for tamponade, patient was tachycardic to the 130s and received multiple liters of crystalloid with partial resolution of tachycardia. Upon arrival patient is complaining of persistent shortness of breath and generally feeling unwell, 4 L nasal cannula is in place, no other acute complaints at this time. Patient was emergently taken into [facility] labs. Admitted post procedure for further management. Hospital Course Hospital Course Hospital Course: 53-year-old morbidly obese female who is transferred from [facility] for evaluation of pericardial effusion with suspected tamponade. Upon arrival patient is complaining of persistent shortness of breath and generally feeling unwell, 4 L nasal cannula is in place, no other acute complaints at this time. CT from outside facility was concerning for cardiac tamponade due to large pericardial effusion. Bedside emergency US confirmed the effusion on arrival. Patient was emergently taken for percutaneous pericardial drainage. Patient seen and evaluated post procedure. 850 serosanguineous fluid was drained. drainage on gravity. Findings was discussed with ER provider pre-procedure and and cardiology post- procedure. Agreed with admission. Patient has done well during admission. Completed 5 days of antibiotics. No further recollection of pericardial effusion. Repeat echo shows improvement. Stable for discharge home after removal of pericardial drain. Recommend close follow-up as an outpatient. Problems addressed as follows: -Pericardial effusion with cardiac tamponade s/p percutaneous pericardiocentesis: Admit patient for continuous cardiac telemetry monitoring of continued output from pericardial drain. Cardiology was consulted and assisted with care. Drain was placed on 09/08. Drained a total of 1600 cc of serosanguineous fluid. Gram stain and culture negative by day of discharge. Drain was removed on 09/11. Dry for over 24 hours before removal. Completed 5 days of cefepime. No further indication for antibiotics at this time. White cell count normalized during admission. Repeat echo obtained on day of discharge showing resolved effusion and no tamponade or concern for external compression on heart. Recommend close follow-up with cardiology in a week for reevaluation. Stable to discharge home today. Tachycardic on presentation, this resolved with resolution of her pericardial effusion -COPD: Does not seem to be on exacerbation. Intermittently wear oxygen. Weaned to room air by morning of discharge. Continue DuoNebs and resume home inhaler at discharge. No further steroids or antibiotics at discharge. -Hx of HTN. not on any current medication. Blood pressure well-controlled during admission. No indication to start medications at this time. Reevaluate in the outpatient setting. Spent 30 minutes in discharge counseling, documentation, chart review, and direct care with patient. Exam Data for Last 24 hours Vital signs and Labs for Last 24 Hours: Temp Pulse Resp BP Pulse Ox O2 Del Method O2 Flow Rate 98.4 F 82 18 128/55 L 95 Room Air 2 09/11/23 12:00 09/11/23 12:00 09/11/23 12:00 09/11/23 12:00 09/11/23 12:00 09/11/23 12:00 09/11/23 08:56 FiO2 28 09/10/23 18:56 Laboratory Results - last 24 hr 09/08/23 15:15: AYLIN Comment Comment, JODIE-1 Antibody <0.2, SS-A Antibody <0.2, SS- B Antibody <0.2, Sm (Natarajan) Antibody <0.2, B[employer] Antibody 0.2, Scl-70 Scleroderma Ab <0.2, Double Strand DNA Ab <1, Chromatin Antibody <0.2, Centromere B Antibody <0.2 09/11/23 06:30: WBC 5.5, RBC 3.57 L, Hgb 10.1 L, Hct 30.2 L, MCV 84.4, MCH 28.3, MCHC 33.5, RDW 13.6, Plt Count 261, MPV 7.2 L, Neut % (Auto) 73.6, Lymph % (Auto) 19.1, [place] % (Auto) 4.3, Eos % (Auto) 2.7, Baso % (Auto) 0.4, Neut # (Auto) 4.1, Lymph # (Auto) 1.1, Oxford # (Auto) 0.2, Eos # (Auto) 0.2, Baso # (Auto) 0.0, Sodium 136, Potassium 3.9, Chloride 102, Carbon Dioxide 31 H, Anion Gap 6.9, BUN 13, Creatinine 0.70, Estimated Creat Clear 85, Estimated GFR 87, Est GFR ( Amer) 105, Glucose 118 H, Calcium 7.9 L 09/11/23 09:45: Chlamy pneumoniae PCR TNP, Adenovirus (PCR) Not detected, B. pertussis DNA (PCR) TNP, Coronavirus OC43 (PCR) Not detected, Coronavirus HKU1 (PCR) Not detected, Coronavirus 229E (PCR) Not detected, SARS-CoV-2 (PCR) Not detected, Coronavirus NL63 (PCR) Not detected, Human Metapneumovir PCR Not detected, Influenza A (H1) PCR Not detected, Influ A (H1N1/09) PCR Not detected, Influenza A (H3) PCR Not detected, Influenza Type A (PCR) Not detected, Influen za Type B (PCR) Not detected, M. pneumoniae (PCR) TNP, Parainfluenza 1 (PCR) Not detected, Parainfluenza 2 (PCR) Not detected, Parainfluenza 3 (PCR) Not detected, Parainfluenza 4 (PCR) Not detected, RSV (PCR) Not detected, Entero/Rhino (PCR) Not detected I & O for Last 24 hours: Intake & Output 09/08/23 09/09/23 09/10/23 09/11/23 23:59 23:59 23:59 23:59 Intake Total 820 / 820 1160 / 1500 1880 / 1880 400 / 400 Output Total 2425 / 3625 2100 / 2300 1375 / 1575 700 / 700 Balance -1605 / -2805 -940 / -800 505 / 305 -300 / -300 Weight 127 kg 125.6 kg 127.1 kg 127.1 kg Microbiology Reports for the Last 24 Hours: Microbiology 09/08/23 10:05 Pericardial Fluid - Pericardial Gram Stain - Final 09/08/23 10:05 Pericardial Fluid - Pericardial Body Fluid Culture - Preliminary 09/07/23 21:40 Blood Blood Culture - Preliminary 09/07/23 21:28 Blood Blood Culture - Preliminary Constitutional Constitutional: no acute distress, morbidly obese, chronically ill appearing and cooperative *Routine HEENT Exam Head: Present normocephalic and atraumatic Eye: Present PERRL ENT: Present mucous membranes moist *Routine Neck Exam Neck: Present supple *Routine Respiratory Exam Respiratory: Present CTA bilaterally; Absent accessory muscle use, wheezes or crackles *Routine Cardiovascular Exam Cardiovascular: Present RRR, Normal S1 and Normal S2; Absent murmur, gallop or rubs Comments: pericardial drain sutured in place. <100mL bloody drainage *Routine Abdominal Exam Abdominal: Present soft; Absent tenderness *Routine Rectal Exam Patient deferred: visual exam *Routine Exam Patient deferred: external exam *Routine Extremities Exam Extremities: Present pulses intact; Absent cyanosis or edema *Routine Skin Exam Skin: Present intact; Absent erythema or wounds *Routine Neurological Exam Neurological: Present alert, oriented X3 and moving all extremities; Absent altered mental status Routine Psychiatric Exam Psychiatric: Present cooperative Results Data Completed and Pending Labs on day of discharge: Labs from last 24 hours 09/11/23 09/11/23 09/08/23 09:45 06:30 15:15 WBC 5.5 RBC 3.57 L Hgb 10.1 L Hct 30.2 L MCV 84.4 MCH 28.3 MCHC 33.5 RDW 13.6 Plt Count 261 MPV 7.2 L Neut % (Auto) 73.6 Lymph % (Auto) 19.1 Oxford % (Auto) 4.3 Eos % (Auto) 2.7 Baso % (Auto) 0.4 Neut # (Auto) 4.1 Lymph # (Auto) 1.1 Oxford # (Auto) 0.2 Eos # (Auto) 0.2 Baso # (Auto) 0.0 Sodium 136 Potassium 3.9 Chloride 102 Carbon Dioxide 31 H Anion Gap 6.9 BUN 13 Creatinine 0.70 Estimated Creat Clear 85 Estimated GFR 87 Est GFR ( Amer) 105 Glucose 118 H Calcium 7.9 L AYLIN Comment Comment JODIE-1 Antibody <0.2 SS-A Antibody <0.2 SS-B Antibody <0.2 Sm (Natarajan) Antibody <0.2 B[employer] WHE[employer] WORK[employer] Antibody 0.2 Scl-70 Scleroderma Ab <0.2 Double Strand DNA Ab <1 Chromatin Antibody <0.2 Centromere B Antibody <0.2 Chlamy pneumoniae PCR TNP Adenovirus (PCR) Not detected B. pertussis DNA (PCR) TNP Coronavirus OC43 (PCR) Not detected Coronavirus HKU1 (PCR) Not detected Coronavirus 229E (PCR) Not detected SARS-CoV-2 (PCR) Not detected Coronavirus NL63 (PCR) Not detected Human Metapneumovir PCR Not detected Influenza A (H1) PCR Not detected Influ A (H1N1/09) PCR Not detected Influenza A (H3) PCR Not detected Influenza Type A (PCR) Not detected Influenza Type B (PCR) Not detected M. pneumoniae (PCR) TNP Parainfluenza 1 (PCR) Not detected Parainfluenza 2 (PCR) Not detected Parainfluenza 3 (PCR) Not detected Parainfluenza 4 (PCR) Not detected RSV (PCR) Not detected Entero/Rhino (PCR) Not detected Preliminary micro results at discharge 09/08/23 10:05 Body Fluid Culture - Preliminary Pericardial Fluid - Pericardial 09/07/23 21:40 Blood Culture - Preliminary Blood 09/07/23 21:28 Blood Culture - Preliminary Blood DS: Diagnosis Discharge Diagnosis (1) Pericardial effusion with cardiac tamponade: Status: Acute Code(s): I31.39 - Other pericardial effusion (noninflammatory); I31.4 - Cardiac tamponade (2) Status post pericardiocentesis: Status: Acute Code(s): Z98.890 - Other specified postprocedural states (3) Tachycardia: Status: Acute Code(s): R00.0 - Tachycardia, unspecified (4) COPD (chronic obstructive pulmonary disease): Status: Acute Code(s): J44.9 - Chronic obstructive pulmonary disease, unspecified Qualifiers: COPD type: unspecified COPD Qualified Code(s): J44.9 - Chronic obstructive pulmonary disease, unspecified (5) HTN (hypertension): Status: Acute Code(s): I10 - Essential (primary) hypertension Qualifiers: Hypertension type: unspecified Qualified Code(s): I10 - Essential (primary) hypertension (6) Morbid obesity with BMI of 40.0-44.9, adult: Status: Acute Code(s): E66.01 - Morbid (severe) obesity due to excess calories; Z68.41 - Body mass index [BMI] 40.0-44.9, adult Meds Home Medications and Allergies Home Medications Medication Instructions Recorded Confirmed Type buprenorphine 8 mg-naloxone 2 mg 2 tab sublingual DAILY 09/07/23 09/07/23 History sublingual tablet buspirone 15 mg tablet 15 mg PO TID Anxiety 09/07/23 09/07/23 History gabapentin 800 mg tablet 800 mg PO TID Pain 09/07/23 09/07/23 History quetiapine 300 mg tablet 300 mg PO HS Mood 09/07/23 09/07/23 History venlafaxine 75 mg capsule,extended 75 mg PO DAILY Mood 09/07/23 09/07/23 History release 24 hr ipratropium 20 mcg-albuterol 100 1 puff inhalation Q4HP PRN 09/08/23 09/08/23 History mcg/actuation mist for inhalation Shortness Of Breath (Combivent Respimat) levothyroxine 150 mcg tablet 150 mcg PO DAILY Thyroid 09/08/23 09/08/23 History nicotine 21 mg/24 hr daily 21 mg transdermal DAILY Smoking 09/08/23 09/08/23 History transdermal patch Cessation New Prescriptions to Start Prescriptions: Allergies Allergy/AdvReac Type Severity Reaction Status Date / Time Sulfa (Sulfonamide Allergy Verified 09/07/23 19:20 Antibiotics) Discharge Plan Disposition Patient Disposition: Home, Self-Care Condition: Fair Discharge Order Discharge Orders: Discharge Order (Routine); Ordered 09/11/23 Ordered By: Reno Christie Follow up Plan Follow up with: Yolanda Riggins APRN [Primary Care Provider] - Enter time for follow up (please call for appointment) Jim Yanez MD [Staff Physician] - 09/18/23 1:45 pm Prescriptions/Medication Reconciliation: Continued venlafaxine 75 mg capsule,extended release 24hr 75 mg PO DAILY Patient Comments: TAKE 1 CAPSULE BY MOUTH EVERY DAY quetiapine 300 mg tablet 300 mg PO HS Patient Comments: TAKE 1 TABLET BY MOUTH AT BEDTIME gabapentin 800 mg tablet 800 mg PO TID Patient Comments: TAKE 1 TABLET BY MOUTH THREE TIMES DAILY buspirone 15 mg tablet 15 mg PO TID Patient Comments: TAKE 1 TABLET BY MOUTH THREE TIMES DAILY buprenorphine-naloxone 8-2 mg tablet, sublingual 2 tab SUBLINGUAL DAILY Patient Comments: DISSOLVE 2 TABLETS UNDER THE TONGUE DAILY levothyroxine 150 mcg tablet 150 mcg PO DAILY Patient Comments: TAKE 1 TABLET BY MOUTH DAILY nicotine 21 mg/24 hr patch 24 hour 21 mg transdermal DAILY Patient Comments: APPLY 1 PATCH TRANSDERMALLY DAILY Combivent Respimat 20-100 mcg/actuation mist 1 puff INHALATION Q4HP PRN (Reason: Shortness Of Breath) Patient Comments: INHALE 1 PUFF BY MOUTH EVERY 4 HOURS NEEDED FOR SHORTNESS OF BREATH OR WHEEZING Discontinued doxycycline hyclate 100 mg capsule 100 mg PO BID Patient Comments: TAKE 1 CAPSULE BY MOUTH TWICE DAILY Problem Reconciliation Problems Reviewed?: Yes Patient Discharge Instructions ACTIVITY: Ambulate as tolerated DIET: continue same diet Patient Instructions: Heart-Healthy Diet, DI for Tachycardia, DI for Surgical Site Infection Providers Primary Care Provider: Yolanda Riggins Admit Provider: Genesis Bowser Attending Provider: Genesis Bowser
--- NOTE | 2023-09-11 13:42 | PC.NURSE ---
bilateral IV's removed, discharge packet explained, pt and family had no questions, pt being wheeled out to daughter's vehicle at this time
--- NOTE | 2023-09-13 11:21 | CARE MANAGER ---
Attempted to contact patient x2 related to hospital discharge. Left VM message. SUSAN Moyer
== END 2023-09-11 13:56 | disposition home or self-care (01) | DRG 315 ==
LOC: ER 19:28 → CATHLAB 19:39 → 2ND 20:14
PROVIDERS: Internal Medicine; Internal Medicine Adolescent Medicine; Nurse Practitioner; Nurse Practitioner Family; Admitting Provider Internal Medicine; Emergency Provider Emergency Medicine; PCP Nurse Practitioner; Visit Provider Internal Medicine
PROC: 0W9D30Z Drainage of Pericardial Cavity with Drainage Device, Percutaneous Approach (ICD-10-PCS; principal; 2023-09-07 19:25)
DX: I31.39 Other pericardial effusion (noninflammatory) (principal); Z68.41 Body mass index [BMI] 40.0-44.9, adult; I31.4 Cardiac tamponade; Z99.81 Dependence on supplemental oxygen; J44.9 Chronic obstructive pulmonary disease, unspecified; F17.200 Nicotine dependence, unspecified, uncomplicated; E66.01 Morbid (severe) obesity due to excess calories; I10 Essential (primary) hypertension
CPT/HCPCS: 33017; 33010; 36415; 70490; 71045; 71250; 80048; 80053; 80061; 83605; 83735; 84439; 84443; 84484; 85007; 85025; 85610; 86225; 86235; 87040; 87070; 87205; 87632; 87635; 93005; 93306; 93308; 94640; 94760; 97163; 97166; 99152; 99153; 99285; C1725; J0574; J1644